=== PATIENT | male | born 1935 | race Caucasian/White ===

== ENCOUNTER 2022-05-06 09:35 | Observation (INO) ==
[2022-05-06] MEDS ORDERED: NS 500 ML IV 500 ML IV ONE (09:38)
--- NOTE | 2022-05-06 09:44 | DR.AMS ---
HPI Time Seen Time Seen by Provider: 05/06/22 09:36 Complaint Cheif Complaint Doctors Comments: 86 y/o male brought in for evaluation. Awoke with confusion this am. Reportedly fine going to bed last pm. Pt and spouse are poor historians. Pt has been having diarrhea recently, no other reports of recen t illness. Currently admits to having a headache. No report of recent trauma, fever, chills. RN notes pt was coughing. No report of vomiting, abdominal or chest pain. COVID-19 Coronavirus risk:travel/contact w/high risk person: No Has patient experienced Coronavirus symptoms: No Reviewed Nurses Notes Reviewed: Yes Source History Provided: Patient and Significant Other PMH PMH Past Medical History: COPD, Diabetes and Hypertension Past Surgical History: Yes Surgical History: Tonsillectomy Family History Family Medical History: Coronary Artery Disease Social History Do you use any recreational Drugs:: No Travel Risk Coronavirus risk:travel/contact w/high risk person: No Has patient experienced Coronavirus symptoms: No ROS Review of Systems Constitutional: Weakness Eyes: No Symptoms Reported ENTM: No Symptoms Reported Respiratoy: Non-Productive Cough Cardiovascular: No Symptoms Reported Gastrointestinal/Abdominal: Diarrhea Genitourinary: No Symptoms Reported Neurological: Headache and Weakness Musculoskeletal: No Symptoms Reported Integumentary: No Symptoms Reported Hematologic/Lymphatic: No Symptoms Reported Psychiatric: No Symptoms Reported All Other Systems: Reviewed and Negative PE Vitals Vital Signs: Temp Pulse Resp BP BP Pulse Ox O2 Del Method 05/29/15 22:35 168/79 05/06/22 12:16 96 H 37 H 94 L 05/06/22 12:16 216/132 05/06/22 12:15 120 H 38 H 96 05/06/22 12:00 91 H 23 95 05/06/22 12:00 209/100 05/06/22 11:57 86 34 H 95 05/06/22 11:57 211/101 05/06/22 11:16 83 29 H 96 05/06/22 11:16 210/97 05/06/22 11:15 92 H 33 H 95 05/06/22 11:00 71 19 98 05/06/22 11:00 190/81 05/06/22 10:46 203/91 05/06/22 10:46 71 14 97 05/06/22 10:45 71 22 97 05/06/22 10:33 203/93 05/06/22 10:33 67 28 H 95 05/06/22 10:30 82 33 H 92 L 05/06/22 10:15 66 24 97 05/06/22 10:05 70 29 H 96 05/06/22 09:45 69 30 H 97 05/06/22 09:45 208/72 05/06/22 09:36 72 29 H 96 05/06/22 09:35 99.1 F 65 22 228/100 97 Room Air General General Appearance: Alert and In No Apparent Distress Head Head Exam: Normal Inspection Eyes Eye exam: PERRL and EOMI ENT ENT Exam: Mucous Membranes Moist Neck Neck Exam: Normal Inspection and Full ROM; negative Tenderness Chest Chest Inspection: Normal Inspection; negative Tenderness Respiratory Respiratory Exam: Normal Lung Sounds Bilat; negative Accessory Muscle Use or Respiratory Distress Cardiovascular Cardiovascular Exam: Regular Rate, Normal Rhythm and Normal Heart Sounds Abdominal Exam Abdominal Exam: Normal Inspection and Soft; negative Tenderness Extremities Extremities Exam: negative Tenderness or Edema Neurological Neurological Exam: CN II-XII Intact and Other (awake, has difficulty following commands. Not oriented to time ) Speech: Fluid Speech Cranial Nerve Exam: EOM Function (II, III, IV, ): Normal, Facial Sensation (V): Normal, Facial Palsy (VII): Normal and Tongue Deviation: Normal Motor Strength - LUE: 4/5 Motor Strength - RUE: 4/5 Motor Strength - LLE: 3/5 Motor Strength - RLE: 4/5 Sensory Exam Upper Extremity: Light Touch: Normal Psychological Psychiatric Exam: Flat Affect Skin Skin Exam: Warm and Dry MDM Differential Diagnosis Metabolic: Dehydration Structural: CVA and SAH Infectious: Sepsis and UTI COURSE Treatment Treatment: 86 y/o male awoke with confusion. W/u initiated. Stroke protocol initiated, with teleneurology. Pt off the tpA clock (awoke with symptoms).1240 - Pt remains stable. No obvious cause for pt's altered mental status. Discussed with his attending, Dr Randhawa, will admit. Will order MRI of the brain to look for changes c/w CVA, vs underlying structural abnormalities. ROR Labs Reviewed Laboratory Results Reviewed?: Yes Result Diagrams: 05/06/22 09:52 05/06/22 09:52 Laboratory: WBC 9.1 X10^3/uL (3.6-10.0) 05/06/22 09:52 RBC 4.98 X10^6/uL (4.7-6.0) 05/06/22 09:52 Hgb 15.0 g/dL (13.5-18.0) 05/06/22 09:52 Hct 44.1 % (42.0-54.0) 05/06/22 09:52 MCV 88.5 fL (80.0-100.0) 05/06/22 09:52 MCH 30.1 pg (27.0-34.0) 05/06/22 09:52 MCHC 34.1 g/dL (33.0-35.0) 05/06/22 09:52 RDW 16.6 % (11.6-16.5) H 05/06/22 09:52 Plt Count 148 X10^3/uL (150.0-450.0) L 05/06/22 09:52 MPV 7.5 fL (7.4-11.0) 05/06/22 09:52 Neut % (Auto) 57.7 % (42.0-75.0) 05/06/22 09:52 Lymph % (Auto) 34.1 % (21.0-51.0) 05/06/22 09:52 [place] % (Auto) 6.0 % (0.0-13.0) 05/06/22 09:52 Eos % (Auto) 1.3 % (0.9-2.9) 05/06/22 09:52 Baso % (Auto) 0.9 % (0.2-1.0) 05/06/22 09:52 Neut # (Auto) 5.3 x10^3/uL (2.2-4.8) H 05/06/22 09:52 Lymph # (Auto) 3.1 X10^3/uL (1.3-2.9) H 05/06/22 09:52 [place] # (Auto) 0.5 x10^3/uL (0.3-0.8) 05/06/22 09:52 Eos # (Auto) 0.1 x10^3/uL (0.0-0.2) 05/06/22 09:52 Baso # (Auto) 0.1 X10^3/uL (0.0-0.1) 05/06/22 09:52 Absolute Nucleated RBC 0.2 /100WBC 05/06/22 09:52 PT 13.4 SECONDS (11.8-14.3) 05/06/22 09:52 INR Target Range - 05/06/22 09:52 INR 1.05 (0.8-1.3) 05/06/22 09:52 APTT 27.1 SECONDS (22.9-36.5) 05/06/22 09:52 PTT Comment - 05/06/22 09:52 Fibrinogen 365 mg/dL (239-489) 05/06/22 09:52 Sodium 138 mmol/L (136-145) 05/06/22 09:52 Corrected Sodium 139 mmol/L (136-145) 05/06/22 09:52 Potassium 4.5 mmol/L (3.5-5.1) 05/06/22 09:52 Chloride 102 mmol/L (98-107) 05/06/22 09:52 Carbon Dioxide 34.3 mmol/L (21-32) H 05/06/22 09:52 BUN 17 mg/dL (7-18) 05/06/22 09:52 Creatinine 1.33 mg/dL (0.70-1.30) H 05/06/22 09:52 Est GFR (MDRD) Af Amer > 60 (>60) 05/06/22 09:52 Est GFR (MDRD) Non-Af 54 (>60) L 05/06/22 09:52 Glucose 124 mg/dL (65-99) H 05/06/22 09:52 POC Glucose (mg/dL) 115 mg/dL (65-99) H 05/06/22 09:52 Calcium 8.7 mg/dL (8.5-10.1) 05/06/22 09:52 Corrected Calcium TNP 05/06/22 09:52 Total Bilirubin 0.70 mg/dL (0.2-1.0) 05/06/22 09:52 AST 21 Units/L (15-37) 05/06/22 09:52 ALT 26 Units/L (12-78) 05/06/22 09:52 Alkaline Phosphatase 48 Units/L (46-116) 05/06/22 09:52 Creatine Kinase 59 Units/L (39-308) 05/06/22 09:52 Troponin I High Sens 31.3 ng/L (4.0-60.0) 05/06/22 09:52 Total Protein 7.1 g/dL (6.4-8.2) 05/06/22 09:52 Albumin 3.9 g/dL (3.4-5.0) 05/06/22 09:52 Globulin 3.2 g/dL (2.5-4.5) 05/06/22 09:52 Albumin/Globulin Ratio 1.2 Ratio (1.1-2.1) 05/06/22 09:52 Specimen Type Clean catch urine 05/06/22 11:14 Urine Color Pale yellow (YELLOW) 05/06/22 11:14 Urine Appearance Clear (CLEAR) 05/06/22 11:14 Urine pH 8.0 (5.0 - 8.0) 05/06/22 11:14 Ur Specific [place] 1.015 (1.000-1.030) 05/06/22 11:14 Urine Protein Negative (NEGATIVE) 05/06/22 11:14 Urine Glucose (UA) 3+ (NEGATIVE) 05/06/22 11:14 Urine Ketones Negative (NEGATIVE) 05/06/22 11:14 Urine Blood Negative (NEGATIVE) 05/06/22 11:14 Urine Nitrite Negative (NEGATIVE) 05/06/22 11:14 Urine Bilirubin Negative (NEGATIVE) 05/06/22 11:14 Urine Urobilinogen Normal (NORMAL) 05/06/22 11:14 Ur Leukocyte Esterase Negative (NEGATIVE) 05/06/22 11:14 Urine Opiates Screen Negative (NEG=<300) 05/06/22 11:14 Urine Methadone Screen Negative (NEG=<300) 05/06/22 11:14 Ur Barbiturates Screen Negative (NEG=<200) 05/06/22 11:14 Ur Phencyclidine Scrn Negative (NEG=<25) 05/06/22 11:14 Ur Amphetamines Screen Negative (NEG=<1000) 05/06/22 11:14 U Benzodiazepines Scrn Negative (NEG=<200) 05/06/22 11:14 Urine Cocaine Screen Negative (NEG=<300) 05/06/22 11:14 U Marijuana (THC) Screen Negative (NEG=<50) 05/06/22 11:14 SARS-CoV-2 (PCR) Negative (NEGATIVE) 05/06/22 11:51 Labs overall acceptable. EKG Rate: 66 [place]: Normal Rhythm: NSR Block: None ST: Normal Opioid Opioid Risk Tool Age (Ghulam box if 16-45): No History of Preadolescent Sexual Abuse: No Total: 0 Total Score Risk Category: Low Risk Copyright: Josue TREJO predicting aberrant behaviors Discharge Plan Diagnosis Discharge Problem: Altered mental status Discharge Plan Patient Disposition: ADMITTED INPATIENT Condition: Stable Orders to Discharge Patient Discharge Orders: Discharge (Routine); Ordered 05/06/22 Ordered By: Parrish Ortiz Transfer (Routine); Ordered 05/06/22 Ordered By: Parrish Ortiz
[2022-05-06] MEDS ORDERED: NS 1,000 ML IV 1,000 ML ONE (09:46)
[2022-05-06 10:03] LABS: BASOPHILS # (AUTO) 0.1 X10^3/uL (0.0-0.1); BASOPHILS % (AUTO) 0.9 % (0.2-1.0); EOSINOPHILS # (AUTO) 0.1 x10^3/uL (0.0-0.2); EOSINOPHILS % (AUTO) 1.3 % (0.9-2.9); HEMATOCRIT 44.1 % (42.0-54.0); LYMPHOCYTES # (AUTO) 3.1 X10^3/uL (1.3-2.9); LYMPHOCYTES % (AUTO) 34.1 % (21.0-51.0); MEAN CORPUSCULAR HEMOGLOBIN 30.1 pg (27.0-34.0); MEAN CORPUSCULAR HGB CONC 34.1 g/dL (33.0-35.0); MEAN CORPUSCULAR VOLUME 88.5 fL (80.0-100.0); MEAN PLATELET VOLUME 7.5 fL (7.4-11.0); MONOCYTES # (AUTO) 0.5 x10^3/uL (0.3-0.8); NEUTROPHILS # (AUTO) 5.3 x10^3/uL (2.2-4.8); NEUTROPHILS % (AUTO) 57.7 % (42.0-75.0); RED BLOOD COUNT 4.98 X10^6/uL (4.7-6.0); RED CELL DISTRIBUTION WIDTH 16.6 % (11.6-16.5); WHITE BLOOD COUNT 9.1 X10^3/uL (3.6-10.0)
[2022-05-06 10:16] LABS: ALANINE AMINOTRANSFERASE 26 Units/L (12-78); ALBUMIN 3.9 g/dL (3.4-5.0); ALKALINE PHOSPHATASE 48 Units/L (46-116); ASPARTATE AMINO TRANSFERASE 21 Units/L (15-37); BLOOD UREA NITROGEN 17 mg/dL (7-18); CALCIUM 8.7 mg/dL (8.5-10.1); CARBON DIOXIDE 34.3 mmol/L (21-32); CHLORIDE 102 mmol/L (98-107); COR NA(FOR HYPERGLY) 139 mmol/L (136-145); CREATINE KINASE 59 Units/L (39-308); CREATININE 1.33 mg/dL (0.70-1.30); SODIUM 138 mmol/L (136-145); TOTAL PROTEIN 7.1 g/dL (6.4-8.2); eGFR NON BLACK RACES 54 (>60)
--- NOTE | 2022-05-06 10:16 | CT ---
HISTORYConfusionSTUDYCT head without contrastTechnique: Axial noncontrast images with coronal and sagittal reformats. Dose reduction procedures were used with mA/kv adjusted for body size.COMPARISONNoneFINDINGSThe ventricles are normal in size shape and position. There is generalized cortical atrophy likely age related. There is decreased attenuation in the periventricular white matter suggestive of small vessel vascular disease. There are no focal areas of abnormal attenuation to suggest recent or remote CVA, hemorrhage, mass lesion, contusion, or extra-axial fluid collection. The visualized sinuses are clear. The calvarium is intact. If acute CVA is a strong clinical consideration MRI with diffusion imaging would be of further diagnostic value.IMPRESSIONNo acute intracranial abnormality identifiedGeneralized cortical atrophy likely age relatedMild small vessel diseaseElectronically signed by: SERGEY VELASQUEZ (May 06, 2022 10:14:31)
[2022-05-06] MEDS: NS 1,000 ML IV 1,000 ML IV SCH ×2 (10:25→17:08)
--- NOTE | 2022-05-06 11:38 | RAD ---
HISTORYConfusion dizzySTUDYAP chestCOMPARISONNoneFINDINGSBorderline cardiomegaly with prosthesis/TAVR. Mild fibrotic changes are suggested in the lungs without definite pneumonia, pulmonary edema or pleural fluid.IMPRESSIONPostsurgical changes; no acute findings.Electronically signed by: RONY WITT (May 06, 2022 11:36:52)
[2022-05-06 11:43] LABS: BILIRUBIN,URINE NEGATIVE (NEGATIVE); BLOOD/HEMOGLOBIN,URINE NEGATIVE (NEGATIVE); GLUCOSE, URINE 3+ (NEGATIVE); KETONES,URINE NEGATIVE (NEGATIVE); LEUKOCYTE ESTERASE ,URINE NEGATIVE (NEGATIVE); NITRITES,URINE NEGATIVE (NEGATIVE); PROTEIN,URINE NEGATIVE (NEGATIVE); UROBILINOGEN,URINE NORMAL (NORMAL)
[2022-05-06 11:58] LABS: APPEARANCE,URINE CLEAR (CLEAR); COLOR,URINE PALE YELLOW (YELLOW)
--- NOTE | 2022-05-06 13:04 | CT ---
HISTORYALTERED MENTAL STATUS, CONFUSIONSTUDYCAROTID CTA with IV contrastCOMPARISONNoneTECHNIQUECTA of the carotid and vertebral arteries in the neck was performed with 3D MIP reconstructions.IV contrast was administered. Images are evaluated using NASCET criteria.FINDINGSCalcified plaque is seen in the origin of the right vertebral artery possibly causing up to 50 percent stenosis. Partially calcified plaque in the origin of the left vertebral artery probably causes approximately 70 percent stenosis. No vertebral artery dissection is seen.Calcified plaque in the right carotid bifurcation and proximal right ICA causes mild stenosis. Greatest degree of narrowing is in the origin of the right ICA with there is 25 percent stenosis. Trace calcified plaque is seen in the origin of the left CCA. Calcified plaque in the left carotid bifurcation and proximal left ICA only causes 15 percent stenosis.IMPRESSIONLikely hemodynamically significant stenosis in the origin of the left vertebral artery with up to 50 percent stenosis in the origin of the right vertebral artery.Only mild stenoses are seen in the regions of the carotid bifurcations and proximal ICAs.Electronically signed by: Russell Melendez (May 06, 2022 13:02:39)
--- NOTE | 2022-05-06 13:13 | CT ---
HISTORYALTERED MENTAL STATUS, CONFUSION, diabetesSTUDYBRAIN CTA with IV contrastCOMPARISONHead CT from same dayTECHNIQUECTA of the intracranial circulation was performed with 3D MIP reconstructions.IV contrast was administered.FINDINGSTrace calcified plaque is seen in the distal intradural portion of the right vertebral artery causing no significant stenosis. No basilar artery stenosis is seen. There is absent left P1 segment with left [employer] supplied via left posterior communicating artery. Normal right P1 segment is seen with absent right posterior communicating artery.There is mild calcified plaque in the cavernous and supraclinoid ICAs causing less than 20 percent stenosis. Anterior communicating artery is seen. No evidence of aneurysm is seen. Normal enhancement is seen of the dural venous sinuses.IMPRESSIONNo significant stenosis is seen.Electronically signed by: Russell Melendez (May 06, 2022 13:11:34)
--- NOTE | 2022-05-06 14:19 | TELESTROKE ---
[facility]ist Consult Date of Consult Date of Exam: 05/06/22 Time of Arrival to the ED: 09:42 Allergies Allergies Allergy/AdvReac Type Severity Reaction Status Date / Time MS Penicillin G Allergy Verified 05/29/15 21:08 [Penicillin G] SULFA DRUGS Allergy Uncoded 05/29/15 21:08 Vital Signs Vital Signs: Temp Pulse Resp BP BP Pulse Ox O2 Del Method 05/29/15 22:35 168/79 05/06/22 14:05 90 21 05/06/22 14:05 189/87 05/06/22 14:00 101 H 31 H 05/06/22 13:45 86 51 H 05/06/22 13:45 180/85 05/06/22 13:30 85 18 05/06/22 13:30 184/79 05/06/22 13:15 86 18 05/06/22 13:15 193/91 05/06/22 13:00 85 42 H 05/06/22 13:00 188/94 05/06/22 12:45 89 32 H 96 05/06/22 12:45 189/84 05/06/22 12:30 86 42 H 95 05/06/22 12:30 182/86 05/06/22 12:16 96 H 37 H 94 L 05/06/22 12:16 216/132 05/06/22 12:15 120 H 38 H 96 05/06/22 12:00 91 H 23 95 05/06/22 12:00 209/100 05/06/22 11:57 86 34 H 95 05/06/22 11:57 211/101 05/06/22 11:16 83 29 H 96 05/06/22 11:16 210/97 05/06/22 11:15 92 H 33 H 95 05/06/22 11:00 71 19 98 05/06/22 11:00 190/81 05/06/22 10:46 203/91 05/06/22 10:46 71 14 97 05/06/22 10:45 71 22 97 05/06/22 10:33 203/93 05/06/22 10:33 67 28 H 95 05/06/22 10:30 82 33 H 92 L 05/06/22 10:15 66 24 97 05/06/22 10:05 70 29 H 96 05/06/22 09:45 69 30 H 97 07/14/22 09:45 208/72 05/06/22 09:36 72 29 H 96 05/06/22 09:35 99.1 F 65 22 228/100 97 Room Air Medical Decision Making Result Diagrams: 05/06/22 09:52 05/06/22 09:52 Labs: Laboratory Results - last 24 hr 05/06/22 05/06/22 05/06/22 09:52 09:52 09:52 WBC 9.1 RBC 4.98 Hgb 15.0 Hct 44.1 MCV 88.5 MCH 30.1 MCHC 34.1 RDW 16.6 H Plt Count 148 L MPV 7.5 Neut % (Auto) 57.7 Lymph % (Auto) 34.1 [place] % (Auto) 6.0 Eos % (Auto) 1.3 Baso % (Auto) 0.9 Neut # (Auto) 5.3 H Lymph # (Auto) 3.1 H [place] # (Auto) 0.5 Eos # (Auto) 0.1 Baso # (Auto) 0.1 Absolute Nucleated RBC 0.2 PT 13.4 INR Target Range - INR 1.05 APTT 27.1 PTT Comment - Fibrinogen 365 Sodium 138 Corrected Sodium 139 Potassium 4.5 Chloride 102 Carbon Dioxide 34.3 H BUN 17 Creatinine 1.33 H Est GFR (MDRD) Af Amer > 60 Est GFR (MDRD) Non-Af 54 L Glucose 124 H POC Glucose (mg/dL) Calcium 8.7 Corrected Calcium TNP Total Bilirubin 0.70 AST 21 ALT 26 Alkaline Phosphatase 48 Creatine Kinase 59 Troponin I High Sens 31.3 Total Protein 7.1 Albumin 3.9 Globulin 3.2 Albumin/Globulin Ratio 1.2 Specimen Type Urine Color Urine Appearance Urine pH Ur Specific [place] Urine Protein Urine Glucose (UA) Urine Ketones Urine Blood Urine Nitrite Urine Bilirubin Urine Urobilinogen Ur Leukocyte Esterase Urine Opiates Screen Urine Methadone Screen Ur Barbiturates Screen Ur Phencyclidine Scrn Ur Amphetamines Screen U Benzodiazepines Scrn Urine Cocaine Screen U Marijuana (THC) Screen SARS-CoV-2 (PCR) 05/06/22 05/06/22 05/06/22 09:52 11:14 11:51 WBC RBC Hgb Hct MCV MCH MCHC RDW Plt Count MPV Neut % (Auto) Lymph % (Auto) [place] % (Auto) Eos % (Auto) Baso % (Auto) Neut # (Auto) Lymph # (Auto) [place] # (Auto) Eos # (Auto) Baso # (Auto) Absolute Nucleated RBC PT INR Target Range INR APTT PTT Comment Fibrinogen Sodium Corrected Sodium Potassium Chloride Carbon Dioxide BUN Creatinine Est GFR (MDRD) Af Amer Est GFR (MDRD) Non-Af Glucose POC Glucose (mg/dL) 115 H Calcium Corrected Calcium Total Bilirubin AST ALT Alkaline Phosphatase Creatine Kinase Troponin I High Sens Total Protein Albumin Globulin Albumin/Globulin Ratio Specimen Type Clean catch urine Urine Color Pale yellow Urine Appearance Clear Urine pH 8.0 Ur Specific [place] 1.015 Urine Protein Negative Urine Glucose (UA) 3+ Urine Ketones Negative Urine Blood Negative Urine Nitrite Negative Urine Bilirubin Negative Urine Urobilinogen Normal Ur Leukocyte Esterase Negative Urine Opiates Screen Negative Urine Methadone Screen Negative Ur Barbiturates Screen Negative Ur Phencyclidine Scrn Negative Ur Amphetamines Screen Negative U Benzodiazepines Scrn Negative Urine Cocaine Screen Negative U Marijuana (THC) Screen Negative SARS-CoV-2 (PCR) Negative Assessment & Plan Assessment & Plan (1) Stroke: Plan [facility] Tele[facility]urology Consult Services Date of Service: 05/06/2022 09:40:31 Diagnosis: I63.19 - 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 He has generalized weakness per . Not a candidate for thrombolytics given time from onset. Has confusion and difficulty following commands. Per chart, has baseline dementia, possibly dementia versus encephaloapthy 2/2 to metabolic.infectious causes versus stroke. Neurology following along. Metrics: Last Known Well: 05/05/2022 20:30:00 [facility] Notification Time: 05/06/2022 09:40:30 Arrival Time: 05/05/2022 09:42:00 Stamp Time: 05/06/2022 09:40:31 Initial Response Time: 05/06/2022 09:41:54 Symptoms: Confusion. NIHSS Start Assessment Time: 05/06/2022 09:44:40 Patient is not a candidate for Thrombolytic. Thrombolytic Medical Decision: 05/06/2022 09:44:57 Patient was not deemed candidate for Thrombolytic because of following reasons: Last Well Known Above 4.[address] head showed no acute hemorrhage or acute core infarct. ED Physician notified of diagnostic impression and management plan on 05/06/2022 10:20:00 Advanced Imaging: CTA Head and Neck Completed. LVO:No Patient doesn't meet criteria for emergent JORDYN consideration Our recommendations are outlined below. Recommendations: Stroke/Telemetry Floor Neuro Checks Bedside Swallow Eval DVT Prophylaxis IV Fluids, Normal Saline Head of Bed 30 Degrees Euglycemia and Avoid Hyperthermia (PRN Acetaminophen) Antihypertensives PRN if Blood pressure is greater than 220/120 or there is a concern for End organ damage/contraindications for permissive HTN. If blood pressure is greater than 220/120 give labetalol PO or IV or Vasotec IV with a goal of 15% reduction in BP during the first 24 hours. Routine Consultation with Inhouse Neurology for Follow up Care Sign Out: Discussed with Emergency Department Provider Discussed with Rapid Response Team History of Present Illness: Patient is a 86 year old Male. Patient was brought by EMS for symptoms of Confusion. 86 year old man brought in via EMS for confusion since this morning. He has generalized weakness per . Not a candidate for thrombolytics given time from onset. Has confusion and difficulty following commands.Per he has some blood thinner possibly but she does not know which one. Past Medical History: HTN, GERD Social History: Smoking: No Alcohol Use: No Drug Use: No Family History: none Review of System: 14 Points Review of Systems was performed and was negative except mentioned in HPI. Anticoagulant use: Unknown Antiplatelet use: Unknown Allergies: Reviewed Allergies Text: PCN, sulfa drugs Examination: BP(208/74), Pulse(72), Blood Glucose(114) 1A: Level of Consciousness - Alert; keenly responsive + 0 1B: Ask Month and Age - Could Not Answer Either Question Correctly + 2 1C: Blink Eyes & Squeeze Hands - Performs Both Tasks + 0 2: Test Horizontal Extraocular Movements - Normal + 0 3: Test Visual [place] - No Visual Loss + 0 4: Test Facial Palsy (Use Grimace if Obtunded) - Normal symmetry + 0 5A: Test Left Arm Motor Drift - No Drift for 10 Seconds + 0 5B: Test Right Arm Motor Drift - No Drift for 10 Seconds + 0 6A: Test Left Leg Motor Drift - No Drift for 5 Seconds + 0 6B: Test Right Leg Motor Drift - No Drift for 5 Seconds + 0 7: Test Limb Ataxia (FNF/Heel-Moya) - Does Not Understand + 0 8: Test Sensation - Normal; No sensory loss + 0 9: Test Language/Aphasia - Severe Aphasia: Fragmentary Expression, Inference Needed, Cannot Identify Materials + 2 10: Test Dysarthria - Normal + 0 11: Test Extinction/Inattention - No abnormality + 0 NIHSS Score: 4 Pre-Morbid Modified [place] Scale: 0 Points = No symptoms at all Patient/Family was informed the Neurology Consult would occur via TeleHealth consult by way of interactive audio and video telecommunications and consented to receiving care in this manner. Patient is being evaluated for possible acute neurologic impairment and high p robability of imminent or life-threatening deterioration. I spent total of 30 minutes providing care to this patient, including time for face to face visit via telemedicine, review of medical records, imaging studies and discussion of findings with providers, the patient and/or family. Dr Jak Mustafa [facility] Case [id number] Medications: Discontinued tramadol Discontinued Reason: Patient No Longer Taking 50 mg PO Q8H PRN 30 tabs 0RF Pain
--- NOTE | 2022-05-06 15:45 | MRI ---
BRAIN W/O CONCLINICAL INDICATION: AMSTECHNIQUE: Pre-contrast T1-w, T2, and diffusion-w sequences of the brain with ADC maps.COMPARISON:NoneFINDINGS:Diffuse patchy and confluent periventricular and subcortical T2/FLAIR signal with associated volume loss. There is no mass or mass-effect, or abnormal extra-axial fluid collection . Diffusion imaging shows no hyperacute, acute, or early subacute infarction . Age-related, ex-vacuo dilatation of the ventricles and sulci . There are normal signal voids in the larger intracranial vessels . The paranasal sinuses and mastoid air cells are predominantly clear . The marrow signal pattern is within normal limits .IMPRESSION:1.No acute intracranial abnormality.Electronically signed by: RADHA PÉREZ (May 06, 2022 15:43:32)
[2022-05-06] MEDS ORDERED: APRESOLINE INJ 20 MG VIAL IVP PRN (15:46)
[2022-05-06] MEDS ORDERED: PATIENT'S HOME MEDICATION (Insulin Aspart U-100 [Novolog Flexpen U-100 Insulin] 100 unit/m SUBCUT SCH (15:46)
[2022-05-06] MEDS: PROVENTIL NEB TX 0.083% 2.5MG/ 3ML IN SCH ×3 (16:07→21:05)
[2022-05-06 16:34] VITALS: BMI 32.1
[2022-05-06] MEDS: SINGULAIR TAB 10 MG PO SCH (16:53)
[2022-05-06] MEDS: ASPIRIN 81 MG CHEWTAB PO SCH (16:53)
[2022-05-06] MEDS: NEURONTIN CAP 100 MG PO SCH (16:53)
[2022-05-06] MEDS: PLAVIX PO SCH (16:53)
[2022-05-06] MEDS: PRAVACHOL PO SCH (21:08)
[2022-05-06] MEDS: LANTUS SC SCH (21:08)
[2022-05-06] MEDS: LASIX PO SCH (21:08)
[2022-05-07] MEDS: NS 1,000 ML IV 1,000 ML IV SCH ×4 (01:17→18:35)
[2022-05-07 05:41] LABS: BASOPHILS # (AUTO) 0.1 X10^3/uL (0.0-0.1); BASOPHILS % (AUTO) 0.6 % (0.2-1.0); EOSINOPHILS # (AUTO) 0.1 x10^3/uL (0.0-0.2); HEMATOCRIT 41.4 % (42.0-54.0); LYMPHOCYTES % (AUTO) 31.6 % (21.0-51.0); MEAN CORPUSCULAR HEMOGLOBIN 29.9 pg (27.0-34.0); MEAN CORPUSCULAR HGB CONC 33.8 g/dL (33.0-35.0); MEAN CORPUSCULAR VOLUME 88.5 fL (80.0-100.0); MEAN PLATELET VOLUME 7.7 fL (7.4-11.0); MONOCYTES # (AUTO) 0.8 x10^3/uL (0.3-0.8); MONOCYTES % (AUTO) 8.2 % (0.0-13.0); NEUTROPHILS # (AUTO) 5.6 x10^3/uL (2.2-4.8); NEUTROPHILS % (AUTO) 58.6 % (42.0-75.0); RED BLOOD COUNT 4.68 X10^6/uL (4.7-6.0); RED CELL DISTRIBUTION WIDTH 16.2 % (11.6-16.5); WHITE BLOOD COUNT 9.5 X10^3/uL (3.6-10.0)
[2022-05-07 05:46] LABS: ALANINE AMINOTRANSFERASE 22 Units/L (12-78); ALBUMIN 3.5 g/dL (3.4-5.0); ALKALINE PHOSPHATASE 43 Units/L (46-116); ASPARTATE AMINO TRANSFERASE 18 Units/L (15-37); BLOOD UREA NITROGEN 15 mg/dL (7-18); CHLORIDE 103 mmol/L (98-107); COR NA(FOR HYPERGLY) 140 mmol/L (136-145); CREATININE 1.27 mg/dL (0.70-1.30); SODIUM 139 mmol/L (136-145); TOTAL PROTEIN 6.2 g/dL (6.4-8.2); eGFR NON BLACK RACES 57 (>60)
[2022-05-07] MEDS: NEURONTIN CAP 100 MG PO SCH (09:15)
[2022-05-07] MEDS: PROVENTIL NEB TX 0.083% 2.5MG/ 3ML IN SCH ×4 (09:15→21:28)
[2022-05-07] MEDS: PLAVIX PO SCH (09:15)
[2022-05-07] MEDS: SINGULAIR TAB 10 MG PO SCH (09:15)
[2022-05-07] MEDS: FLOMAX PO SCH (09:15)
[2022-05-07] MEDS: LASIX PO SCH ×2 (09:15→20:16)
[2022-05-07] MEDS: ASPIRIN 81 MG CHEWTAB PO SCH (09:15)
[2022-05-07] MEDS: LANTUS SC SCH ×2 (11:35→20:21)
--- NOTE | 2022-05-07 11:53 | VAS ---
HISTORY: Concern for carotid artery stenosis. Carotid atherosclerosis.EXAM: BILATERAL DOPPLER CAROTID ULTRASOUND EXAMTechnique: Multiple camara scale and color flow Doppler images of the right and left carotid arterial system were obtained. The vertebral arterial system was evaluated as well.Findings:Nonocclusive color flow Doppler is seen throughout the right and left carotid arterial system. No hemodynamically significant carotid arterial stenosis is seen based on velocity criteria. There is moderate to severe atherosclerosis and hard atherosclerotic plaque formation of the bilateral carotid bulbs and ICAs with associated intimal thickening but [without] evidence for high-grade stenosis (>70%) or occlusion of the carotid arteries. The right and left vertebral artery demonstrate antegrade flow.IMPRESSION:Moderate to severe bilateral carotid atherosclerosis and hard atherosclerotic plaque formation of the bilateral carotid bulbs and [in both] ICAs with [id number] associated carotid intimal thickening but without evidence for high-grade stenosis or occlusion of the carotid arteries, based on Doppler velocity criteria.Appropriate, antegrade, vertebral arterial flow.Peak right ICA velocity: 92 centimeter/seconds.Peak right CCA velocity: [70] centimeter/seconds.Peak left ICA velocity: [95] centimeter/seconds.Peak left CCA velocity: [83] centimeter/seconds.Electronically signed by: JORGE LUIS ULLOA III (May 07, 2022 11:51:50)
[2022-05-07 13:17] LABS: HEMOGLOBIN A1C 5.8 %
--- NOTE | 2022-05-07 13:21 | DR.H&P ---
H&P - History & Physical for Day of: H&P Date: 05/06/22 - Chief Complaint Chief Complaint: AMS - History of Present Illness History of Present Illness: 86 y/o male brought in for evaluation. Awoke with confusion this am. Reportedly fine going to bed last pm. Pt and spouse are poor historians. Pt has been having diarrhea recently, no other reports of recent illness. Currently admits to having a headache. No report of recent trauma, fever, chills. RN notes pt was coughing. No report of vomiting, abdominal or chest pain. Pt has PMH of COPD, aortic valve replacement, CHF, HTN, DM. Pt had acute stroke work up in ER prior to ICU admission. - Past Medical History Past Medical History: Arthritis, COPD, Diabetes, GERD, Hypertension - Past Surgical History Surgical History: CABG/Valve Surgery (aortic valve replacement), Tonsillectomy - Family History Family Medical History: Diabetes Mellitus, [place] - Social History Does patient currently use any type of tobacco product: No Have you used tobacco products in the last 12 months: No Type of Tobacco Use: None Alcohol Use: None Drug Use: None Risks, benefits, and alternatives of opioids discussed: No Prescription drug monitoring program results: PDMP reviewed and no concerns identified - Medications Home Medications: MS Penicillin G [Penicillin G] Allergy (Verified 05/29/15 21:08) SULFA DRUGS Allergy (Uncoded 05/29/15 21:08) CONTINUE taking the following medications albuterol sulfate 2.5 mg/3 mL (0.083 %) solution for nebulization 3 ml inhalation QID 05/06/22 [History] aspirin 81 mg chewable tablet 81 mg PO QDAY 05/06/22 [History] azelastine 137 mcg (0.1 %) nasal spray aerosol 2 spray intranasal BID 05/06/22 [History] clopidogrel 75 mg tablet 1 tab PO QDAY 05/06/22 [History] furosemide 40 mg tablet 1 tab PO BID 05/06/22 [History] gabapentin 100 mg capsule 100 mg PO QDAY 05/06/22 [History] insulin aspart U-100 100 unit/mL (3 mL) subcutaneous pen (Novolog Flexpen U-100 Insulin aspart) 15 unit subcut TID 05/06/22 [History] montelukast 10 mg tablet 10 mg PO QDAY 05/06/22 [History] - Review of Systems Constitutional: Weakness, Malaise Eyes: No Symptoms Reported ENT: No Symptoms Reported Respiratory: Cough Cardiovascular: Edema Gastrointestinal: Diarrhea Genitourinary: No Symptoms Reported Musculoskeletal: Other (leg weakness "couldnt walk") Neurological: Weakness, Incoordination, Change in Speech ("garbled speech" per spouse), Confusion - Physical Exam Vital Signs: Temperature 98.0 F Pulse Rate 67 Respiratory Rate 27 Blood Pressure [Right Arm] 168/79 Blood Pressure 143/66 O2 Sat by Pulse Oximetry 97 Oriented: Person. negative: Time, Place Eyes: Normal Ear: Normal Nose: Normal Throat: Normal Respiratory: Rhonchi Throughout, RLL Diminished, LLL Diminished Cardiovascular: Normal, Edema (bilateral lower extremities +1) : Normal Auscultation: Bowel Sounds: Normal Palpation: Normal Tenderness: Normal Skin: Normal Musculoskeletal: Right, Left, Leg, Motor Deficit Mood Description: Calm Speech Pattern: Delayed - Assessment/Plan (1) Altered mental status Status: Acute Plan: ADMIT, ICU MONITORING. CONTINUE STROKE PROTOCOL, VERIFY HOME MEDICATION. PT/OT/SP EVALUATION, CONTINUOUSE CARDIAC MONITORING, SUPPLEMENTAL O2, NEURO CHECKS, RESUME PLAVIX AND STATIN. BP CONTROL, BC, URINE CULTURE AND SPUTUM CULTURE ON ADMISSION. IV ROCEPHIN (2) TIA (transient ischemic attack) Status: Acute (3) Diabetes Status: Acute (4) COPD (chronic obstructive pulmonary disease) Status: Acute - Allergies Allergies/Adverse Reactions: Allergies Allergy/AdvReac Type Severity Reaction Status Date / Time MS Penicillin G Allergy Verified 05/29/15 21:08 [Penicillin G] SULFA DRUGS Allergy Uncoded 05/29/15 21:08
--- NOTE | 2022-05-07 13:39 | PCM.PROG ---
Progress Note - Progress Note for Day of Date of Exam: 05/07/22 - Subjective Subjective: PT IS 86 WM ER ADMISSION WITH AMS, STROKE LIKE SYMPTOMS. PT HAD STROKE LIKE SYMPTOMS INCLUDING CONFUSION, SLURRED AND INAPPROPRIATE SPEECH, LOWER LEG WEAKNESS. PT HAD CT BRAIN, MRI BRAIN CTA OF NECK WHILE IN ER AND NEUROLOGIST TELEMED EVALUATION. PT HAS PMH OF HTN, DM, COPD, AORTIC VALVE DIS EASE, MO AND CHF. PT WAS ADMITTED TO ICU FOR EVALUATION OF ACUTE ILLNESS. PT HAD DIFFUSE RHONCHI WITH COUGH PRESENT ON EXAM THIS MORNING. PT REPORTS HE HAS BEEN HAVING DIARRHEA AT HOME AND CO HEADACHE, WHICH IS RARE FOR HIM. PT HAD CAROTID US WO SIGNIFICANT STENOSIS, REPEAT CHEST XRAY THIS MORNING IS PENDING.PT WAS IN HYPERTENSIVE URGENCY ON ARRIVAL TO ER, CURRENTLY CONTROLLED BP. PT DENIES CHEST PAIN THIS MORNING. PT/OT/SP TO EVALUATE THIS MORNING. PT IV FLUIDS DECREASED FROM 125CC/HR TO 50CC/HR. PT MOVING BILATERAL UPPER AND LOWER EXTREMITIES THIS MORNING WITHOUT MARKED DEFICIT. RESP CONSULTED FOR SPUTUM CULTURE AND PRN JUSTYNA GOINS, PT ON IV ROCEPHIN. - Past Medical Family Social History Allergies: Allergies MS Penicillin G [Penicillin G] Allergy (Verified 05/29/15 21:08) SULFA DRUGS Allergy (Uncoded 05/29/15 21:08) - Review of Systems ROS: No change since H&P - Vital Signs and I&O's Vital Signs: Temperature 98.0 F Pulse Rate 67 Respiratory Rate 27 Blood Pressure [Right Arm] 168/79 Blood Pressure 143/66 O2 Sat by Pulse Oximetry 97 Intake and Output: Intake & Output 05/05/22 05/06/22 05/07/22 05/08/22 11:59 11:59 11:59 11:59 Intake Total 2491 / 2491 Balance 2491 / 2491 - Physical Exam Oriented: Person. negative: Time, Place Eyes: Normal Ear: Normal Nose: Normal Throat: Normal Respiratory: Diminished, Rhonchi Cardiovascular: Normal, Edema (bilateral lower extremities +1) : Normal Auscultation: Bowel Sounds: Normal Tenderness: Normal Skin: Normal Musculoskeletal: Back:Lumbar, Tender Psychiatric: Normal Mood Description: Calm Speech Pattern: Clear, Appropriate - Laboratory and Diagnostics Result Diagrams: 05/07/22 05:20 05/07/22 05:20 Labs: Laboratory WBC 9.5 X10^3/uL (3.6-10.0) 05/07/22 05:20 RBC 4.68 X10^6/uL (4.7-6.0) L 05/07/22 05:20 Hgb 14.0 g/dL (13.5-18.0) 05/07/22 05:20 Hct 41.4 % (42.0-54.0) L 05/07/22 05:20 MCV 88.5 fL (80.0-100.0) 05/07/22 05:20 MCH 29.9 pg (27.0-34.0) 05/07/22 05:20 MCHC 33.8 g/dL (33.0-35.0) 05/07/22 05:20 RDW 16.2 % (11.6-16.5) 05/07/22 05:20 Plt Count 138 X10^3/uL (150.0-450.0) L 05/07/22 05:20 MPV 7.7 fL (7.4-11.0) 05/07/22 05:20 Neut % (Auto) 58.6 % (42.0-75.0) 05/07/22 05:20 Lymph % (Auto) 31.6 % (21.0-51.0) 05/07/22 05:20 [place] % (Auto) 8.2 % (0.0-13.0) 05/07/22 05:20 Eos % (Auto) 1.0 % (0.9-2.9) 05/07/22 05:20 Baso % (Auto) 0.6 % (0.2-1.0) 05/07/22 05:20 Neut # (Auto) 5.6 x10^3/uL (2.2-4.8) H 05/07/22 05:20 Lymph # (Auto) 3.0 X10^3/uL (1.3-2.9) H 05/07/22 05:20 Wise # (Auto) 0.8 x10^3/uL (0.3-0.8) 05/07/22 05:20 Eos # (Auto) 0.1 x10^3/uL (0.0-0.2) 05/07/22 05:20 Baso # (Auto) 0.1 X10^3/uL (0.0-0.1) 05/07/22 05:20 Absolute Nucleated RBC 0.2 /100WBC 05/07/22 05:20 PT 13.4 SECONDS (11.8-14.3) 05/06/22 09:52 INR Target Range - 05/06/22 09:52 INR 1.05 (0.8-1.3) 05/06/22 09:52 APTT 27.1 SECONDS (22.9-36.5) 05/06/22 09:52 PTT Comment - 05/06/22 09:52 Fibrinogen 365 mg/dL (239-489) 05/06/22 09:52 Sodium 139 mmol/L (136-145) 05/07/22 05:20 Corrected Sodium 140 mmol/L (136-145) 05/07/22 05:20 Potassium 4.2 mmol/L (3.5-5.1) 05/07/22 05:20 Chloride 103 mmol/L (98-107) 05/07/22 05:20 Carbon Dioxide 30.0 mmol/L (21-32) 05/07/22 05:20 BUN 15 mg/dL (7-18) 05/07/22 05:20 Creatinine 1.27 mg/dL (0.70-1.30) 05/07/22 05:20 Est GFR (MDRD) Af Amer > 60 (>60) 05/07/22 05:20 Est GFR (MDRD) Non-Af 57 (>60) L 05/07/22 05:20 Glucose 121 mg/dL (65-99) H 05/07/22 05:20 POC Glucose (mg/dL) 165 mg/dL (65-99) H 05/07/22 12:05 Calcium 8.0 mg/dL (8.5-10.1) L 05/07/22 05:20 Corrected Calcium TNP 05/07/22 05:20 Total Bilirubin 0.90 mg/dL (0.2-1.0) 05/07/22 05:20 AST 18 Units/L (15-37) 05/07/22 05:20 ALT 22 Units/L (12-78) 05/07/22 05:20 Alkaline Phosphatase 43 Units/L (46-116) L 05/07/22 05:20 Creatine Kinase 59 Units/L (39-308) 05/06/22 09:52 Troponin I High Sens 31.3 ng/L (4.0-60.0) 05/06/22 09:52 Total Protein 6.2 g/dL (6.4-8.2) L 05/07/22 05:20 Albumin 3.5 g/dL (3.4-5.0) 05/07/22 05:20 Globulin 2.7 g/dL (2.5-4.5) 05/07/22 05:20 Albumin/Globulin Ratio 1.3 Ratio (1.1-2.1) 05/07/22 05:20 Specimen Type Clean catch urine 05/06/22 11:14 Urine Color Pale yellow (YELLOW) 05/06/22 11:14 Urine Appearance Clear (CLEAR) 05/06/22 11:14 Urine pH 8.0 (5.0 - 8.0) 05/06/22 11:14 Ur Specific [place] 1.015 (1.000-1.030) 05/06/22 11:14 Urine Protein Negative (NEGATIVE) 05/06/22 11:14 Urine Glucose (UA) 3+ (NEGATIVE) 05/06/22 11:14 Urine Ketones Negative (NEGATIVE) 05/06/22 11:14 Urine Blood Negative (NEGATIVE) 05/06/22 11:14 Urine Nitrite Negative (NEGATIVE) 05/06/22 11:14 Urine Bilirubin Negative (NEGATIVE) 05/06/22 11:14 Urine Urobilinogen Normal (NORMAL) 05/06/22 11:14 Ur Leukocyte Esterase Negative (NEGATIVE) 05/06/22 11:14 Urine Opiates Screen Negative (NEG=<300) 05/06/22 11:14 Urine Methadone Screen Negative (NEG=<300) 05/06/22 11:14 Ur Barbiturates Screen Negative (NEG=<200) 05/06/22 11:14 Ur Phencyclidine Scrn Negative (NEG=<25) 05/06/22 11:14 Ur Amphetamines Screen Negative (NEG=<1000) 05/06/22 11:14 U Benzodiazepines Scrn Negative (NEG=<200) 05/06/22 11:14 Urine Cocaine Screen Negative (NEG=<300) 05/06/22 11:14 U Marijuana (THC) Screen Negative (NEG=<50) 05/06/22 11:14 SARS-CoV-2 (PCR) Negative (NEGATIVE) 05/06/22 11:51 - Plan (1) TIA (transient ischemic attack) Status: Acute Plan: ICU MONITORING. CONTINUE STROKE PROTOCOL, VERIFY HOME MEDICATION. PT/OT/SP EVALUATION, CONTINUOUSE CARDIAC MONITORING, SUPPLEMENTAL O2, NEURO CHECKS, RESUME PLAVIX AND STATIN. BP CONTROL, BC, URINE CULTURE AND SPUTUM CULTURE ON ADMISSION. IV ROCEPHIN (2) Hypertensive encephalopathy syndrome Status: Acute (3) COPD (chronic obstructive pulmonary disease) Status: Acute Qualifiers: COPD type: COPD with acute exacerbation Qualified Code(s): J44.1 - Chronic obstructive pulmonary disease with (acute) exacerbation (4) Diabetes Status: Acute (5) Altered mental status Status: Resolved
--- NOTE | 2022-05-07 14:54 | RAD ---
HISTORYSOB CHFSTUDYPortable AP [id number] cardiac prominence with aortic valve prosthesis. Interval increase in vascular congestion and interstitial pulmonary pattern. No airspace consolidation or pleural fluid.IMPRESSIONSlight interval increase in pulmonary congestion and interstitial prominence consistent with mild CHF.Electronically signed by: RONY WITT (May 07, 2022 14:52:29)
[2022-05-07] MEDS: ROBITUSSIN DM PO SCH ×3 (15:49→20:16)
[2022-05-07] MEDS: ROCEPHIN VIAL 1 GRAM 1 G in NS 100 ML IV 100 ML IV SCH (15:49)
[2022-05-07 20:16] LABS: BILIRUBIN,URINE NEGATIVE (NEGATIVE); BLOOD/HEMOGLOBIN,URINE NEGATIVE (NEGATIVE); GLUCOSE, URINE 4+ (NEGATIVE); KETONES,URINE NEGATIVE (NEGATIVE); LEUKOCYTE ESTERASE ,URINE NEGATIVE (NEGATIVE); NITRITES,URINE NEGATIVE (NEGATIVE); PROTEIN,URINE NEGATIVE (NEGATIVE); UROBILINOGEN,URINE NORMAL (NORMAL)
[2022-05-07 20:18] LABS: APPEARANCE,URINE CLEAR (CLEAR); COLOR,URINE STRAW (YELLOW)
[2022-05-07] MEDS: PRAVACHOL PO SCH (20:27)
[2022-05-08] MEDS: NS 1,000 ML IV 1,000 ML IV SCH ×3 (02:51→18:07)
[2022-05-08 05:43] LABS: BASOPHILS # (AUTO) 0.1 X10^3/uL (0.0-0.1); BASOPHILS % (AUTO) 0.7 % (0.2-1.0); EOSINOPHILS # (AUTO) 0.1 x10^3/uL (0.0-0.2); EOSINOPHILS % (AUTO) 1.5 % (0.9-2.9); HEMATOCRIT 39.6 % (42.0-54.0); HEMOGLOBIN 13.3 g/dL (13.5-18.0); LYMPHOCYTES # (AUTO) 2.1 X10^3/uL (1.3-2.9); LYMPHOCYTES % (AUTO) 27.2 % (21.0-51.0); MEAN CORPUSCULAR HEMOGLOBIN 29.8 pg (27.0-34.0); MEAN CORPUSCULAR HGB CONC 33.5 g/dL (33.0-35.0); MEAN CORPUSCULAR VOLUME 89.1 fL (80.0-100.0); MEAN PLATELET VOLUME 8.2 fL (7.4-11.0); MONOCYTES # (AUTO) 0.7 x10^3/uL (0.3-0.8); MONOCYTES % (AUTO) 9.1 % (0.0-13.0); NEUTROPHILS # (AUTO) 4.6 x10^3/uL (2.2-4.8); NEUTROPHILS % (AUTO) 61.5 % (42.0-75.0); RED BLOOD COUNT 4.45 X10^6/uL (4.7-6.0); RED CELL DISTRIBUTION WIDTH 16.4 % (11.6-16.5); WHITE BLOOD COUNT 7.5 X10^3/uL (3.6-10.0)
[2022-05-08 05:55] LABS: ALANINE AMINOTRANSFERASE 25 Units/L (12-78); ALBUMIN 3.4 g/dL (3.4-5.0); ALKALINE PHOSPHATASE 45 Units/L (46-116); ASPARTATE AMINO TRANSFERASE 14 Units/L (15-37); BLOOD UREA NITROGEN 13 mg/dL (7-18); CALCIUM 7.9 mg/dL (8.5-10.1); CARBON DIOXIDE 29.1 mmol/L (21-32); TOTAL PROTEIN 6.5 g/dL (6.4-8.2); eGFR NON BLACK RACES 51 (>60)
[2022-05-08 06:08] LABS: CHLORIDE 104 mmol/L (98-107)
[2022-05-08 06:38] LABS: COR NA(FOR HYPERGLY) 142 mmol/L (136-145); SODIUM 140 mmol/L (136-145)
[2022-05-08] MEDS: PROVENTIL NEB TX 0.083% 2.5MG/ 3ML IN SCH ×4 (08:22→20:22)
[2022-05-08] MEDS: ASPIRIN 81 MG CHEWTAB PO SCH (08:51)
[2022-05-08] MEDS: FLOMAX PO SCH (08:51)
[2022-05-08] MEDS: LANTUS SC SCH ×2 (08:51→21:30)
[2022-05-08] MEDS: LASIX PO SCH ×2 (08:52→21:30)
[2022-05-08] MEDS: PLAVIX PO SCH (08:52)
[2022-05-08] MEDS: NEURONTIN CAP 100 MG PO SCH (08:52)
[2022-05-08] MEDS: ROCEPHIN VIAL 1 GRAM 1 G in NS 100 ML IV 100 ML IV SCH (08:53)
[2022-05-08] MEDS: ROBITUSSIN DM PO SCH ×4 (08:53→21:30)
[2022-05-08] MEDS: SINGULAIR TAB 10 MG PO SCH (08:53)
[2022-05-08] MEDS ORDERED: LASIX IVP ONE (10:27)
[2022-05-08] MEDS: ZESTRIL TAB 5 MG PO SCH (11:05)
[2022-05-08] MEDS: NovoLIN R (or HumuLIN R) SC PRN ×2 (11:17→16:14)
[2022-05-08] MEDS: PRAVACHOL PO SCH (21:30)
[2022-05-09] MEDS: NS 1,000 ML IV 1,000 ML IV SCH ×4 (02:05→17:44)
[2022-05-09 05:43] LABS: ALANINE AMINOTRANSFERASE 16 Units/L (12-78); ALBUMIN 3.5 g/dL (3.4-5.0); ALKALINE PHOSPHATASE 42 Units/L (46-116); ASPARTATE AMINO TRANSFERASE 14 Units/L (15-37); BLOOD UREA NITROGEN 19 mg/dL (7-18); CALCIUM 8.1 mg/dL (8.5-10.1); CARBON DIOXIDE 32.6 mmol/L (21-32); CHLORIDE 101 mmol/L (98-107); COR NA(FOR HYPERGLY) 143 mmol/L (136-145); CREATININE 1.72 mg/dL (0.70-1.30); SODIUM 140 mmol/L (136-145); TOTAL PROTEIN 6.7 g/dL (6.4-8.2); eGFR NON BLACK RACES 40 (>60)
[2022-05-09 06:08] LABS: BASOPHILS % (AUTO) 0.5 % (0.2-1.0); EOSINOPHILS # (AUTO) 0.2 x10^3/uL (0.0-0.2); EOSINOPHILS % (AUTO) 1.9 % (0.9-2.9); HEMATOCRIT 40.5 % (42.0-54.0); HEMOGLOBIN 13.6 g/dL (13.5-18.0); LYMPHOCYTES # (AUTO) 2.1 X10^3/uL (1.3-2.9); LYMPHOCYTES % (AUTO) 24.5 % (21.0-51.0); MEAN CORPUSCULAR HEMOGLOBIN 29.9 pg (27.0-34.0); MEAN CORPUSCULAR HGB CONC 33.7 g/dL (33.0-35.0); MEAN CORPUSCULAR VOLUME 88.7 fL (80.0-100.0); MEAN PLATELET VOLUME 8.2 fL (7.4-11.0); MONOCYTES # (AUTO) 0.8 x10^3/uL (0.3-0.8); MONOCYTES % (AUTO) 9.5 % (0.0-13.0); NEUTROPHILS # (AUTO) 5.5 x10^3/uL (2.2-4.8); NEUTROPHILS % (AUTO) 63.6 % (42.0-75.0); RED BLOOD COUNT 4.57 X10^6/uL (4.7-6.0); RED CELL DISTRIBUTION WIDTH 16.3 % (11.6-16.5); WHITE BLOOD COUNT 8.7 X10^3/uL (3.6-10.0)
[2022-05-09] MEDS: PROVENTIL NEB TX 0.083% 2.5MG/ 3ML IN SCH ×3 (08:35→20:25)
[2022-05-09] MEDS: ASPIRIN 81 MG CHEWTAB PO SCH (08:40)
[2022-05-09] MEDS: FLOMAX PO SCH (08:41)
[2022-05-09] MEDS: NEURONTIN CAP 100 MG PO SCH (08:41)
[2022-05-09] MEDS: PLAVIX PO SCH (08:41)
[2022-05-09] MEDS: LASIX PO SCH (08:41)
[2022-05-09] MEDS: LANTUS SC SCH ×2 (08:41→20:29)
[2022-05-09] MEDS: ROCEPHIN VIAL 1 GRAM 1 G in NS 100 ML IV 100 ML IV SCH (08:42)
[2022-05-09] MEDS: ROBITUSSIN DM PO SCH ×4 (08:42→20:30)
[2022-05-09] MEDS: ZESTRIL TAB 5 MG PO SCH (08:43)
[2022-05-09] MEDS: SINGULAIR TAB 10 MG PO SCH (08:43)
[2022-05-09] MEDS: NovoLIN R (or HumuLIN R) SC PRN ×2 (12:06→16:19)
--- NOTE | 2022-05-09 14:49 | PCM.PROG ---
Progress Note - Progress Note for Day of Date of Exam: 05/09/22 - Subjective Subjective: PT IS 86 WM ER ADMISSION WITH AMS, STROKE LIKE SYMPTOMS. PT HAD STROKE LIKE SYMPTOMS INCLUDING CONFUSION, SLURRED AND INAPPROPRIATE SPEECH, LOWER LEG WEAKNESS. PT HAD CT BRAIN, MRI BRAIN CTA OF NECK WHILE IN ER AND NEUROLOGIST TELEMED EVALUATION. PT HAS PMH OF HTN, DM, COPD, AORTIC VALVE DIS EASE, MO AND CHF. PT WAS ADMITTED TO ICU FOR EVALUATION OF ACUTE ILLNESS. PT HAD DIFFUSE RHONCHI WITH COUGH PRESENT ON EXAM THIS MORNING. PT REPORTS HE HAS BEEN HAVING DIARRHEA AT HOME AND CO HEADACHE, WHICH IS RARE FOR HIM. PT HAD CAROTID US WO SIGNIFICANT STENOSIS. CHEST XRAY YESTERDAY HAD INCREASED VASCULAR CONGESTION, REPEAT CHEST XRAY THIS MORNING IS PENDING.PT WAS IN HYPERTENSIVE URGENCY ON ARRIVAL TO ER, CURRENTLY CONTROLLED BP. PT DENIES CHEST PAIN THIS MORNING. PT/OT/SP TO EVALUATE THIS MORNING. PT IV FLUIDS DECREASED FROM 50CC/HR. PT MOVING BILATERAL UPPER AND LOWER EXTREMITIES THIS MORNING WITHOUT MARKED DEFICIT. RESP CONSULTED FOR SPUTUM CULTURE AND PRN JEFFO BRISEIDA, PT ON IV ROCEPHIN. PT SCHEDULED FOR ECHO IN THE AM. PT REPORTS HE FEELING BETTER WITH IMPROVED LOWER LEG EDEMA AND IMPROVING SOB. PT HAS REPORTS NO LONGER HAVING LOOSE STOOL. WBC 8.7, HGB 13.6 BUN 19, CREAT 1.72. BP 139/65 O2 SAT 94 % ON ROOM AIR THIS MORNING - Past Medical Family Social History Allergies: Allergies penicillin G Allergy (Verified 05/08/22 02:45) SULFA DRUGS Allergy (Uncoded 05/29/15 21:08) - Review of Systems ROS: No change since H&P - Vital Signs and I&O's Vital Signs: Temperature 99 F Pulse Rate 73 Respiratory Rate 21 Blood Pressure [Right Arm] 168/79 Blood Pressure 123/58 O2 Sat by Pulse Oximetry 92 Intake and Output: Intake & Output 05/07/22 05/08/22 05/09/22 05/10/22 11:59 11:59 11:59 11:59 Intake Total 2491 / 2491 2918 / 2918 1217 / 1217 Output Total 2400 / 2400 Balance 2491 / 2491 2918 / 2918 -1183 / -1183 - Physical Exam Oriented: Person. negative: Time, Place Eyes: Normal Ear: Normal Nose: Normal Throat: Normal Respiratory: Diminished, Rhonchi Cardiovascular: Normal, Edema (bilateral lower extremities +1) : Normal Auscultation: Bowel Sounds: Normal Tenderness: Normal Skin: Normal Musculoskeletal: Back:Lumbar, Tender Psychiatric: Normal Mood Description: Calm Speech Pattern: Delayed - Laboratory and Diagnostics Result Diagrams: 05/09/22 04:30 05/09/22 04:30 Labs: 05/07/22 10:04 Blood Blood Culture - Preliminary 05/07/22 09:47 Blood Blood Culture - Preliminary 05/07/22 19:35 Urine,Clean Catch Urine Culture - Final 05/07/22 21:10 Stool Stool Culture - Preliminary 05/07/22 21:10 Stool - Final Laboratory WBC 8.7 X10^3/uL (3.6-10.0) 05/09/22 04:30 RBC 4.57 X10^6/uL (4.7-6.0) L 05/09/22 04:30 Hgb 13.6 g/dL (13.5-18.0) 05/09/22 04:30 Hct 40.5 % (42.0-54.0) L 05/09/22 04:30 MCV 88.7 fL (80.0-100.0) 05/09/22 04:30 MCH 29.9 pg (27.0-34.0) 05/09/22 04:30 MCHC 33.7 g/dL (33.0-35.0) 05/09/22 04:30 RDW 16.3 % (11.6-16.5) 05/09/22 04:30 Plt Count 132 X10^3/uL (150.0-450.0) L 05/09/22 04:30 MPV 8.2 fL (7.4-11.0) 05/09/22 04:30 Neut % (Auto) 63.6 % (42.0-75.0) 05/09/22 04:30 Lymph % (Auto) 24.5 % (21.0-51.0) 05/09/22 04:30 [place] % (Auto) 9.5 % (0.0-13.0) 05/09/22 04:30 Eos % (Auto) 1.9 % (0.9-2.9) 05/09/22 04:30 Baso % (Auto) 0.5 % (0.2-1.0) 05/09/22 04:30 Neut # (Auto) 5.5 x10^3/uL (2.2-4.8) H 05/09/22 04:30 Lymph # (Auto) 2.1 X10^3/uL (1.3-2.9) 05/09/22 04:30 [place] # (Auto) 0.8 x10^3/uL (0.3-0.8) 05/09/22 04:30 Eos # (Auto) 0.2 x10^3/uL (0.0-0.2) 05/09/22 04:30 Baso # (Auto) 0.0 X10^3/uL (0.0-0.1) 05/09/22 04:30 Absolute Nucleated RBC 0.4 /100WBC 05/09/22 04:30 PT 13.4 SECONDS (11.8-14.3) 05/06/22 09:52 INR Target Range - 05/06/22 09:52 INR 1.05 (0.8-1.3) 05/06/22 09:52 APTT 27.1 SECONDS (22.9-36.5) 05/06/22 09:52 PTT Comment - 05/06/22 09:52 Fibrinogen 365 mg/dL (239-489) 05/06/22 09:52 Sodium 140 mmol/L (136-145) 05/09/22 04:30 Corrected Sodium 143 mmol/L (136-145) 05/09/22 04:30 Potassium 3.5 mmol/L (3.5-5.1) 05/09/22 04:30 Chloride 101 mmol/L (98-107) 05/09/22 04:30 Carbon Dioxide 32.6 mmol/L (21-32) H 05/09/22 04:30 BUN 19 mg/dL (7-18) H 05/09/22 04:30 Creatinine 1.72 mg/dL (0.70-1.30) H 05/09/22 04:30 Est GFR (MDRD) Af Amer 49 (>60) L 05/09/22 04:30 Est GFR (MDRD) Non-Af 40 (>60) L 05/09/22 04:30 Glucose 205 mg/dL (65-99) H 05/09/22 04:30 POC Glucose (mg/dL) 245 mg/dL (65-99) H 05/09/22 11:55 Hemoglobin A1c 5.8 % 05/07/22 05:20 Calcium 8.1 mg/dL (8.5-10.1) L 05/09/22 04:30 Corrected Calcium TNP 05/09/22 04:30 Total Bilirubin 0.50 mg/dL (0.2-1.0) 05/09/22 04:30 AST 14 Units/L (15-37) L 05/09/22 04:30 ALT 16 Units/L (12-78) 05/09/22 04:30 Alkaline Phosphatase 42 Units/L (46-116) L 05/09/22 04:30 Creatine Kinase 63 Units/L (39-308) 05/07/22 18:10 Troponin I High Sens 37.6 ng/L (4.0-60.0) 05/07/22 18:10 Total Protein 6.7 g/dL (6.4-8.2) 05/09/22 04:30 Albumin 3.5 g/dL (3.4-5.0) 05/09/22 04:30 Globulin 3.2 g/dL (2.5-4.5) 05/09/22 04:30 Albumin/Globulin Ratio 1.1 Ratio (1.1-2.1) 05/09/22 04:30 Specimen Type Clean catch urine 05/07/22 19:35 Urine Color Straw (YELLOW) 05/07/22 19:35 Urine Appearance Clear (CLEAR) 05/07/22 19:35 Urine pH 5.0 (5.0 - 8.0) 05/07/22 19:35 Ur Specific [place] 1.010 (1.000-1.030) 05/07/22 19:35 Urine Protein Negative (NEGATIVE) 05/07/22 19:35 Urine Glucose (UA) 4+ (NEGATIVE) 05/07/22 19:35 Urine Ketones Negative (NEGATIVE) 05/07/22 19:35 Urine Blood Negative (NEGATIVE) 05/07/22 19:35 Urine Nitrite Negative (NEGATIVE) 05/07/22 19:35 Urine Bilirubin Negative (NEGATIVE) 05/07/22 19:35 Urine Urobilinogen Normal (NORMAL) 05/07/22 19:35 Ur Leukocyte Esterase Negative (NEGATIVE) 05/07/22 19:35 Stool Description 120 g. brown 05/07/22 21:10 Stl Occult Blood (IFOB) Positive (NEGATIVE) A 05/07/22 21:10 Stool for White Cells Positive (NEGATIVE) A 05/07/22 21:10 Stl C. diff Tox B Gene Negative (NEGATIVE) 05/07/22 21:10 Stl C. diff [id number] Presumptive negative (NEGATIVE) 05/07/22 21:10 Stool H. pylori Ag Negative (NEGATIVE) 05/07/22 21:10 Urine Opiates Screen Negative (NEG=<300) 05/06/22 11:14 Urine Methadone Screen Negative (NEG=<300) 05/06/22 11:14 Ur Barbiturates Screen Negative (NEG=<200) 05/06/22 11:14 Ur Phencyclidine Scrn Negative (NEG=<25) 05/06/22 11:14 Ur Amphetamines Screen Negative (NEG=<1000) 05/06/22 11:14 U Benzodiazepines Scrn Negative (NEG=<200) 05/06/22 11:14 Urine Cocaine Screen Negative (NEG=<300) 05/06/22 11:14 U Marijuana (THC) Screen Negative (NEG=<50) 05/06/22 11:14 SARS-CoV-2 (PCR) Negative (NEGATIVE) 05/06/22 11:51 - Plan (1) TIA (transient ischemic attack) Status: Acute Plan: ICU MONITORING. CONTINUE STROKE PROTOCOL, VERIFY HOME MEDICATION. PT/OT/ SP EVALUATION, CONTINUOUSE CARDIAC MONITORING, SUPPLEMENTAL O2, NEURO CHECKS, RESUME PLAVIX AND STATIN. BP CONTROL, BC, URINE CULTURE AND SPUTUM CULTURE ON ADMISSION. IV ROCEPHIN (2) Hypertensive encephalopathy syndrome Status: Acute (3) COPD (chronic obstructive pulmonary disease) Status: Acute Qualifiers: COPD type: COPD with acute exacerbation Qualified Code(s): J44.1 - Chronic obstructive pulmonary disease with (acute) exacerbation (4) Diabetes Status: Acute (5) Altered mental status Status: Resolved Plan: ADMIT, ICU MONITORING. CONTINUE STROKE PROTOCOL, VERIFY HOME MEDICATION. PT/OT/SP EVALUATION, CONTINUOUSE CARDIAC MONITORING, SUPPLEMENTAL O2, NEURO CHECKS, RESUME PLAVIX AND STATIN. BP CONTROL, BC, URINE CULTURE AND SPUTUM CULTURE ON ADMISSION. IV ROCEPHIN
[2022-05-09] MEDS: PRAVACHOL PO SCH (20:29)
[2022-05-10] MEDS: NS 1,000 ML IV 1,000 ML IV SCH ×2 (03:05→11:04)
[2022-05-10 05:20] LABS: BASOPHILS # (AUTO) 0.1 X10^3/uL (0.0-0.1); BASOPHILS % (AUTO) 0.8 % (0.2-1.0); EOSINOPHILS # (AUTO) 0.2 x10^3/uL (0.0-0.2); EOSINOPHILS % (AUTO) 2.7 % (0.9-2.9); HEMATOCRIT 37.7 % (42.0-54.0); HEMOGLOBIN 12.7 g/dL (13.5-18.0); LYMPHOCYTES # (AUTO) 2.5 X10^3/uL (1.3-2.9); LYMPHOCYTES % (AUTO) 30.7 % (21.0-51.0); MEAN CORPUSCULAR HEMOGLOBIN 29.8 pg (27.0-34.0); MEAN CORPUSCULAR HGB CONC 33.8 g/dL (33.0-35.0); MEAN CORPUSCULAR VOLUME 88.2 fL (80.0-100.0); MEAN PLATELET VOLUME 8.2 fL (7.4-11.0); MONOCYTES # (AUTO) 0.7 x10^3/uL (0.3-0.8); MONOCYTES % (AUTO) 8.1 % (0.0-13.0); NEUTROPHILS # (AUTO) 4.7 x10^3/uL (2.2-4.8); NEUTROPHILS % (AUTO) 57.7 % (42.0-75.0); RED BLOOD COUNT 4.28 X10^6/uL (4.7-6.0); RED CELL DISTRIBUTION WIDTH 16.1 % (11.6-16.5); WHITE BLOOD COUNT 8.1 X10^3/uL (3.6-10.0)
[2022-05-10 05:29] LABS: ALANINE AMINOTRANSFERASE 17 Units/L (12-78); ALBUMIN 3.2 g/dL (3.4-5.0); ALKALINE PHOSPHATASE 40 Units/L (46-116); ASPARTATE AMINO TRANSFERASE 16 Units/L (15-37); BLOOD UREA NITROGEN 18 mg/dL (7-18); CALCIUM 7.9 mg/dL (8.5-10.1); CARBON DIOXIDE 33.2 mmol/L (21-32); CHLORIDE 103 mmol/L (98-107); COR CA(FOR HYPOALB) 8.5 mg/dL (8.5-10.1); COR NA(FOR HYPERGLY) 141 mmol/L (136-145); CREATININE 1.28 mg/dL (0.70-1.30); SODIUM 140 mmol/L (136-145); TOTAL PROTEIN 6.1 g/dL (6.4-8.2); eGFR NON BLACK RACES 57 (>60)
[2022-05-10] MEDS ORDERED: MAGNESIUM SULFATE 1 GRAM/100 mL PREMIX 1 G/100 ML BAG IV PRN (05:48)
[2022-05-10] MEDS ORDERED: K-RIDER 10 MEQ/NS 100 ML 10 MEQ/100 ML BAG IV PRN (05:48)
[2022-05-10] MEDS ORDERED: POTASSIUM CHLORIDE LIQ 20 MEQ UDC PO PRN (05:48)
[2022-05-10] MEDS ORDERED: K-DUR TAB 20 MEQ PO PRN (05:48)
[2022-05-10] MEDS ORDERED: KLOR-CON PO PRN (05:48)
[2022-05-10] MEDS ORDERED: MICRO K EXTEN CAP 10 MEQ PO PRN (05:48)
[2022-05-10] MEDS ORDERED: POTASSIUM CHL 60 MEQ/NS 0.45% 500 ML IV PRN (05:48)
[2022-05-10] MEDS ORDERED: POTASSIUM CHL 40 MEQ/NS 0.45% 500 ML IV PRN (05:48)
--- NOTE | 2022-05-10 07:16 | RAD ---
HISTORYCHFSTUDYPortable AP [id number] is no significant change in appearance of heart or lungs. Cardiomegaly with vascular congestion and probable pulmonary edema, findings accentuated by diaphragm elevation and pulmonary hypo inflation.IMPRESSIONNo change.Electronically signed by: RONY WITT (May 10, 2022 07:15:09)
[2022-05-10] MEDS: PROVENTIL NEB TX 0.083% 2.5MG/ 3ML IN SCH (08:01)
[2022-05-10] MEDS: FLOMAX PO SCH (08:24)
[2022-05-10] MEDS: ASPIRIN 81 MG CHEWTAB PO SCH (08:24)
[2022-05-10] MEDS: LANTUS SC SCH (08:25)
[2022-05-10] MEDS: PLAVIX PO SCH (08:26)
[2022-05-10] MEDS: NEURONTIN CAP 100 MG PO SCH (08:26)
[2022-05-10] MEDS: ROBITUSSIN DM PO SCH (08:27)
[2022-05-10] MEDS: ROCEPHIN VIAL 1 GRAM 1 G in NS 100 ML IV 100 ML IV SCH (08:28)
[2022-05-10] MEDS: ZESTRIL TAB 5 MG PO SCH (08:28)
[2022-05-10] MEDS: SINGULAIR TAB 10 MG PO SCH (08:28)
[2022-05-10] MEDS ORDERED: LASIX PO SCH (09:00)
[2022-05-10 11:04] VITALS: BP 166/73
== END 2022-05-10 11:17 | disposition home or self-care (01) ==
LOC: ER 09:35 → ICU 09:35
PROVIDERS: ADMIT Internal Medicine; ATTEND Internal Medicine
DX: E11.65 Type 2 diabetes mellitus with hyperglycemia; R42 Dizziness and giddiness; I16.0 Hypertensive urgency; K21.9 Gastro-esophageal reflux disease without esophagitis; I25.10 Atherosclerotic heart disease of native coronary artery without angina pectoris; Z20.822 Contact with and (suspected) exposure to COVID-19; I67.4 Hypertensive encephalopathy; I63.19 Cerebral infarction due to embolism of other precerebral artery; J44.9 Chronic obstructive pulmonary disease, unspecified; N40.0 Benign prostatic hyperplasia without lower urinary tract symptoms; J44.0 Chronic obstructive pulmonary disease with (acute) lower respiratory infection; R41.82 Altered mental status, unspecified; R19.7 Diarrhea, unspecified

== ENCOUNTER 2022-08-16 13:11 | Inpatient (IN) ==
[2022-08-16 13:21] VITALS: BMI 33.7
--- NOTE | 2022-08-16 14:23 | DR.GENAD ---
HPI Time Seen Time Seen by Provider: 08/16/22 14:22 PCP Primary Care Physician: SHELBY Complaint/Symptoms Chief Complaint:: PT STATES HE HAS HAD VERTIGO FOR YEARS NOW, BUT LAST WEEK I FELL WHEN I GOT DIZZY AND HURT MY LEFT HIP. Self Treatment fo Chief Complaint: NONE Source History Provided: Patient Mode of Arrival Mode of Arrival: Wheelchair Timing Onset of Chief Complaint: 08/11/22 PMH PMH Past Medical History: Yes Past Medical History: Arthritis, COPD, Diabetes, GERD and Hypertension Past Surgical History: Yes Surgical History: CABG/Valve Surgery and Tonsillectomy Family History History of Family Medical Conditions: Yes Family Medical History: Diabetes Mellitus and [place] Social History Does any household member use tobacco: No Alcohol Use: None Do you use any recreational Drugs:: No Lives With: Spouse Lives Where: Home Infectious screening In the last 2 months have you had wt loss of >10#?: NO Have you had fever, night sweats or hemotysis?: No Have you traveled outside the country in the last 6 months?: No Isolation: Standard PE Vital Signs Vitals: Temperature 97.6 F Pulse Rate 67 Respiratory Rate 20 Blood Pressure [Right Arm] 168/79 Blood Pressure 134/61 O2 Sat by Pulse Oximetry 98 ROR Labs Reviewed Laboratory Results Reviewed?: Yes Result Diagrams: 08/16/22 15:25 08/16/22 15:25 Laboratory: WBC 8.7 X10^3/uL (3.6-10.0) 08/16/22 15:25 RBC 4.07 X10^6/uL (4.7-6.0) L 08/16/22 15:25 Hgb 12.1 g/dL (13.5-18.0) L 08/16/22 15:25 Hct 34.6 % (42.0-54.0) L 08/16/22 15:25 MCV 85.0 fL (80.0-100.0) 08/16/22 15:25 MCH 29.7 pg (27.0-34.0) 08/16/22 15:25 MCHC 35.0 g/dL (33.0-35.0) 08/16/22 15:25 RDW 14.9 % (11.6-16.5) 08/16/22 15:25 Plt Count 147 X10^3/uL (150.0-450.0) L 08/16/22 15:25 MPV 7.9 fL (7.4-11.0) 08/16/22 15:25 Neut % (Auto) 50.1 % (42.0-75.0) 08/16/22 15:25 Lymph % (Auto) 38.8 % (21.0-51.0) 08/16/22 15:25 Rowan % (Auto) 7.7 % (0.0-13.0) 08/16/22 15:25 Eos % (Auto) 2.5 % (0.9-2.9) 08/16/22 15:25 Baso % (Auto) 0.9 % (0.2-1.0) 08/16/22 15:25 Neut # (Auto) 4.3 x10^3/uL (2.2-4.8) 08/16/22 15:25 Lymph # (Auto) 3.4 X10^3/uL (1.3-2.9) H 08/16/22 15:25 Rowan # (Auto) 0.7 x10^3/uL (0.3-0.8) 08/16/22 15:25 Eos # (Auto) 0.2 x10^3/uL (0.0-0.2) 08/16/22 15:25 Baso # (Auto) 0.1 X10^3/uL (0.0-0.1) 08/16/22 15:25 Absolute Nucleated RBC 0.1 /100WBC 08/16/22 15:25 Sodium 134 mmol/L (136-145) L 08/16/22 15:25 Corrected Sodium 136 mmol/L (136-145) 08/16/22 15:25 Potassium 4.2 mmol/L (3.5-5.1) 08/16/22 15:25 Chloride 96 mmol/L (98-107) L 08/16/22 15:25 Carbon Dioxide 33.6 mmol/L (21-32) H 08/16/22 15:25 BUN 60 mg/dL (7-18) H 08/16/22 15:25 Creatinine 2.05 mg/dL (0.70-1.30) H 08/16/22 15:25 Est GFR (MDRD) Af Amer 40 (>60) L 08/16/22 15:25 Est GFR (MDRD) Non-Af 33 (>60) L 08/16/22 15:25 Glucose 186 mg/dL (65-99) H 08/16/22 15:25 Calcium 8.6 mg/dL (8.5-10.1) 08/16/22 15:25 Corrected Calcium TNP 08/16/22 15:25 Total Bilirubin 0.50 mg/dL (0.2-1.0) 08/16/22 15:25 AST 17 Units/L (15-37) 08/16/22 15:25 ALT 30 Units/L (12-78) 08/16/22 15:25 Alkaline Phosphatase 45 Units/L (46-116) L 08/16/22 15:25 Creatine Kinase 63 Units/L (39-308) 08/16/22 15:25 Troponin I High Sens 13.9 ng/L (4.0-60.0) 08/16/22 15:25 B-Natriuretic Peptide 57.4 pg/mL (0-79) 08/16/22 15:25 Total Protein 6.9 g/dL (6.4-8.2) 08/16/22 15:25 Albumin 4.0 g/dL (3.4-5.0) 08/16/22 15:25 Globulin 2.9 g/dL (2.5-4.5) 08/16/22 15:25 Albumin/Globulin Ratio 1.4 Ratio (1.1-2.1) 08/16/22 15:25 Specimen Type Clean catch urine 08/16/22: Urine Color Yellow (YELLOW) 08/16/22: Urine Appearance Clear (CLEAR) 08/16/22: Urine pH 6.5 (5.0 - 8.0) 08/16/22: Ur Specific [place] 1.010 (1.000-1.030) 08/16/22: Urine Protein 2+ (NEGATIVE) 08/16/22 17: Urine Glucose (UA) 3+ (NEGATIVE) 08/16/22 17: Urine Ketones Negative (NEGATIVE) 08/16/22: Urine Blood Negative (NEGATIVE) 08/16/22: Urine Nitrite Negative (NEGATIVE) 08/16/22 17:33 Urine Bilirubin Negative (NEGATIVE) 08/16/22 17:33 Urine Urobilinogen Normal (NORMAL) 08/16/22 17:33 Ur Leukocyte Esterase Negative (NEGATIVE) 08/16/22 17:33 Urine RBC 0-2 /HPF (0-3) 08/16/22 17:33 Urine WBC None seen /HPF (0-5) 08/16/22 17:33 Ur Squamous Epith Cells Rare /HPF (NEGATIVE) 08/16/22 17:33 Urine Bacteria Trace /HPF (NEGATIVE) 08/16/22 17:33 Ur Culture Indicated? No/not indicated 08/16/22 17:33 Opioid Opioid Risk Tool Age (Ghulam box if 16-45): No History of Preadolescent Sexual Abuse: No Total: 0 Total Score Risk Category: Low Risk Copyright: Josue TREJO predicting aberrant behaviors Discharge Plan Discharge Plan Patient Disposition: 01 HOME, SELF-CARE Condition: Stable Prescriptions: No Action pravastatin [Pravachol] 80 MG tablet 0.5 tab PO HS tamsulosin [Flomax] 0.4 mg Capsule 0.5 tab PO HS insulin glargine [Lantus Solostar U-100 Insulin] 100 UNIT/ML insulin pen 30 units SUBCUT BID Label Comments: furosemide 40 mg tablet 1 tab PO BID clopidogrel 75 mg tablet 1 tab PO QDAY aspirin 81 mg Tablet,Chewable 81 mg PO QDAY insulin aspart U-100 [Novolog Flexpen U-100 Insulin] 100 unit/mL (3 mL) Insulin Pen 10 unit SUBCUT TID gabapentin 100 mg capsule 1 cap PO QDAY lisinopril 5 mg tablet 5 mg PO BID PRN Rx Instructions: TAKE ONE TABLET AT BEDTIME. CHECK BLOOD PRESSURE EVERY MORNING. IF BLOOD PRESSURE IS GREATER THAN 150/90, TAKE AN ADDITIONAL TABLET IN THE MORNING. Health Concerns: Post Hospitalization: new medications and changes needed to prevent readmission or further decline. Pt educated and given instructions on all concerns. Plan of Treatment: Continue with present treatment and follow up plan. Pt is to keep follow up appointment as instructed and take medications as ordered. Orders to Discharge Patient Discharge Orders: Transfer (Routine); Ordered 08/16/22 Ordered By: DAPHNEY BARAHONA Follow ups/Referrals Follow ups/Referrals: Costa Randhawa [Primary Care Provider] - 3 days Instructions Stand Alone Forms: Precautions for COVID19, [facility], Patient Portal, Social Distancing
[2022-08-16 15:38] LABS: BASOPHILS # (AUTO) 0.1 X10^3/uL (0.0-0.1); BASOPHILS % (AUTO) 0.9 % (0.2-1.0); EOSINOPHILS # (AUTO) 0.2 x10^3/uL (0.0-0.2); EOSINOPHILS % (AUTO) 2.5 % (0.9-2.9); HEMATOCRIT 34.6 % (42.0-54.0); HEMOGLOBIN 12.1 g/dL (13.5-18.0); LYMPHOCYTES # (AUTO) 3.4 X10^3/uL (1.3-2.9); LYMPHOCYTES % (AUTO) 38.8 % (21.0-51.0); MEAN CORPUSCULAR HEMOGLOBIN 29.7 pg (27.0-34.0); MEAN PLATELET VOLUME 7.9 fL (7.4-11.0); MONOCYTES # (AUTO) 0.7 x10^3/uL (0.3-0.8); MONOCYTES % (AUTO) 7.7 % (0.0-13.0); NEUTROPHILS # (AUTO) 4.3 x10^3/uL (2.2-4.8); NEUTROPHILS % (AUTO) 50.1 % (42.0-75.0); RED BLOOD COUNT 4.07 X10^6/uL (4.7-6.0); RED CELL DISTRIBUTION WIDTH 14.9 % (11.6-16.5); WHITE BLOOD COUNT 8.7 X10^3/uL (3.6-10.0)
[2022-08-16 15:51] LABS: ALANINE AMINOTRANSFERASE 30 Units/L (12-78); ALKALINE PHOSPHATASE 45 Units/L (46-116); ASPARTATE AMINO TRANSFERASE 17 Units/L (15-37); BLOOD UREA NITROGEN 60 mg/dL (7-18); CALCIUM 8.6 mg/dL (8.5-10.1); CARBON DIOXIDE 33.6 mmol/L (21-32); CHLORIDE 96 mmol/L (98-107); COR NA(FOR HYPERGLY) 136 mmol/L (136-145); CREATINE KINASE 63 Units/L (39-308); CREATININE 2.05 mg/dL (0.70-1.30); SODIUM 134 mmol/L (136-145); TOTAL PROTEIN 6.9 g/dL (6.4-8.2); eGFR NON BLACK RACES 33 (>60)
--- NOTE | 2022-08-16 16:43 | CT ---
HISTORYPT STATES HE HAS HAD VERTIGO FOR YEARS NOW, BUT LAST WEEK I FELL WHEN I GOT DIZZY AND HURT MY LEFT HIP.STUDYBRAIN W/O CONCOMPARISONMRI brain from May 06, 2022 and CTA brain from May 06, 2022TECHNIQUEAxial non-contrast images of the head were obtained with coronal and sagittal reformats provided.Radiation dose: 990.52 mGy-cm total DLPFINDINGSNo abnormal areas of acute attenuation in the brain parenchyma.Baeza-white differentiation remains intact.No intracranial, extra-axial, fluid collection.No hemorrhage.Periventricular chronic microvascular disease.No mass, mass effect or midline shift.Age related brain parenchymal global atrophy.No ventriculomegaly.No acute fracture.Sinuses are well aerated.Mastoid air cells are well aerated.Globes and intra-orbital contents are unremarkable.IMPRESSIONNo acute intracranial abnormality identified.Electronically signed by: Austin Archuleta (Aug 16, 2022 16:41:23)
[2022-08-16] MEDS ORDERED: NS 1,000 ML IV 1,000 ML IV ONE (17:00)
[2022-08-16] MEDS ORDERED: NS 1,000 ML IV 1,000 ML ONE (17:29)
--- NOTE | 2022-08-16 17:36 | RAD ---
CHEST, 1 VIEWHISTORY:VertigoStudy: Single view of the chest.Comparison:NoneFindings:Cardiomegaly and pulmonary vascular congestion. No focal consolidations, pleural effusions or pneumothorax. Osseous structures demonstrate no acute abnormality.IMPRESSION:1.Cardiomegaly and pulmonary vascular congestion.Electronically signed by: RADHA PÉREZ (Aug 16, 2022 17:34:30)
[2022-08-16 17:43] LABS: BILIRUBIN,URINE NEGATIVE (NEGATIVE); BLOOD/HEMOGLOBIN,URINE NEGATIVE (NEGATIVE); GLUCOSE, URINE 3+ (NEGATIVE); KETONES,URINE NEGATIVE (NEGATIVE); LEUKOCYTE ESTERASE ,URINE NEGATIVE (NEGATIVE); NITRITES,URINE NEGATIVE (NEGATIVE); PH,URINE 6.5 (5.0 - 8.0); PROTEIN,URINE 2+ (NEGATIVE); UROBILINOGEN,URINE NORMAL (NORMAL)
[2022-08-16 17:44] LABS: APPEARANCE,URINE CLEAR (CLEAR); COLOR,URINE YELLOW (YELLOW)
[2022-08-16 17:46] LABS: BACTERIA,URINE TRACE /HPF (NEGATIVE); RBC,URINE 0-2 /HPF (0-3); SQUAMOUS EPITHELIAL CELL,UR RARE /HPF (NEGATIVE)
[2022-08-16 18:49] LABS: BILIRUBIN,URINE NEGATIVE (NEGATIVE); BLOOD/HEMOGLOBIN,URINE NEGATIVE (NEGATIVE); GLUCOSE, URINE 2+ (NEGATIVE); KETONES,URINE NEGATIVE (NEGATIVE); LEUKOCYTE ESTERASE ,URINE NEGATIVE (NEGATIVE); NITRITES,URINE NEGATIVE (NEGATIVE); PH,URINE 6.5 (5.0 - 8.0); PROTEIN,URINE NEGATIVE (NEGATIVE); UROBILINOGEN,URINE NORMAL (NORMAL)
[2022-08-16 18:56] LABS: APPEARANCE,URINE CLEAR (CLEAR); COLOR,URINE PALE YELLOW (YELLOW)
[2022-08-16] MEDS: NS 1,000 ML IV 1,000 ML IV SCH (19:56)
[2022-08-16] MEDS ORDERED: PROVENTIL NEB TX 0.083% 2.5MG/ 3ML ONE (20:42)
[2022-08-16] MEDS: PROVENTIL NEB TX 0.083% 2.5MG/ 3ML NEB SCH (21:00)
--- NOTE | 2022-08-16 21:19 | RAD ---
HISTORYPT STATES HE HAS HAD VERTIGO FOR YEARS NOW, BUT LAST WEEK I FELL WHEN I GOT DIZZY AND HURT MY LEFT HIP. Relevant Clinical InformationSTUDYHIP, LEFTCOMPARISONNoneFINDINGSA single frontal view of the pelvis demonstrates the pelvic ring to be intact. No evidence for acute cortical disruption or dislocation of the hip can be observed. Frog leg views of the hip fails to demonstrate evidence for fracture or significant joint abnormality.IMPRESSIONNegative examElectronically signed by: ARLET WHITNEY (Aug 16, 2022 21:17:46)
[2022-08-17] MEDS: NS 1,000 ML IV 1,000 ML IV SCH ×3 (03:00→21:26)
[2022-08-17 03:37] LABS: BASOPHILS # (AUTO) 0.1 X10^3/uL (0.0-0.1); BASOPHILS % (AUTO) 1.1 % (0.2-1.0); EOSINOPHILS # (AUTO) 0.3 x10^3/uL (0.0-0.2); EOSINOPHILS % (AUTO) 3.9 % (0.9-2.9); HEMATOCRIT 30.4 % (42.0-54.0); HEMOGLOBIN 10.9 g/dL (13.5-18.0); LYMPHOCYTES # (AUTO) 3.2 X10^3/uL (1.3-2.9); LYMPHOCYTES % (AUTO) 44.4 % (21.0-51.0); MEAN CORPUSCULAR HEMOGLOBIN 30.5 pg (27.0-34.0); MEAN CORPUSCULAR VOLUME 84.7 fL (80.0-100.0); MEAN PLATELET VOLUME 7.8 fL (7.4-11.0); MONOCYTES # (AUTO) 0.6 x10^3/uL (0.3-0.8); MONOCYTES % (AUTO) 8.5 % (0.0-13.0); NEUTROPHILS % (AUTO) 42.1 % (42.0-75.0); RED BLOOD COUNT 3.58 X10^6/uL (4.7-6.0); RED CELL DISTRIBUTION WIDTH 14.8 % (11.6-16.5); WHITE BLOOD COUNT 7.1 X10^3/uL (3.6-10.0)
[2022-08-17 03:57] LABS: BLOOD UREA NITROGEN 49 mg/dL (7-18); CALCIUM 8.2 mg/dL (8.5-10.1); CARBON DIOXIDE 30.4 mmol/L (21-32); CHLORIDE 102 mmol/L (98-107); COR NA(FOR HYPERGLY) 143 mmol/L (136-145); CREATININE 1.65 mg/dL (0.70-1.30); SODIUM 141 mmol/L (136-145); eGFR NON BLACK RACES 42 (>60)
[2022-08-17] MEDS: PROVENTIL NEB TX 0.083% 2.5MG/ 3ML NEB SCH ×2 (05:00→21:10)
--- NOTE | 2022-08-17 07:38 | RAD ---
HISTORYSOBSTUDYCHEST, 1 [id number]/24/2022.TECHNIQUEAP view of the chestFINDINGSCardiac valve noted. Cardiac silhouette is enlarged with silhouetting of the left heart border. Mediastinal contours appear normal. Similar appearing bibasilar interstitial opacities. Cannot exclude a small left pleural effusion. No pneumothorax. Soft tissue attenuation limits evaluation..IMPRESSIONBibasilar interstitial opacities may represent pneumonia or chronic fibrosis.Cannot exclude small left pleural effusion.Cardiomegaly.Electronically signed by: Dexter Michele (Aug 17, 2022 07:36:31)
[2022-08-17] MEDS: LEVAQUIN PREMIX IV 500 MG 500 MG/100 ML BAG IV SCH (09:36)
[2022-08-17] MEDS: MAALOX or MYLANTA PO PRN ×2 (11:12→20:44)
[2022-08-17 11:40] LABS: ALANINE AMINOTRANSFERASE 26 Units/L (12-78); ALBUMIN 3.4 g/dL (3.4-5.0); ALKALINE PHOSPHATASE 38 Units/L (46-116); ASPARTATE AMINO TRANSFERASE 17 Units/L (15-37); TOTAL PROTEIN 6.1 g/dL (6.4-8.2)
[2022-08-17] MEDS: PEPCID 20 MG VIAL 20 MG in NS 50 ML IV 50 ML IV SCH ×2 (12:28→20:43)
[2022-08-17] MEDS: PROTONIX INJ 40 MG VIAL IVP SCH ×2 (12:31→20:43)
--- NOTE | 2022-08-17 13:12 | DR.H&P ---
H&P - History & Physical for Day of: H&P Date: 08/16/22 - Chief Complaint Chief Complaint: DIZZINESS AND LEFT HIP PAIN - History of Present Illness History of Present Illness: IS A 87 YEAR OLD PATIENT OF OURS. HE PRESENTED TO THE ER WITH COMPLAINTS OF SEVERE DIZZINESS AND LEFT HIP PAIN. PATIENT REPORTS THAT HE FELL ABOUT A WEEK AGO DUE TO DIZZINESS AND HAS HAD LEFT HIP PAIN SINCE FALLING. HE DOES ADMIT TO HAVING A HISTORY OF VERTIGO. HIS OTHER PMH INCLUDES ARTHRITIS, COPD, DM II, GERD, HTN, CABG, AND TONSILLECTOMY. ON ARRIVAL TO THE ER, VITALS WERE: 97.6-67-20-98%-134/61. LABS WERE OBTAINED. WBC 8.7, RBC 4.07, HGB 12.1, HCT 34.6, PLT COUNT 147, SODIUM 134, POTASSIUM 4.2, CHLORIDE 96, CARBON DIOXIDE 33.6, BUN 60, CREATININE 2.05, GLUCOSE 186, CALCIUM 8.6, AST 17, ALT 30, ALK PHOS 45, CREATINE KINASE 63, TOTAL PROTEIN 6.9, ALBUMIN 4.0, TROPONIN 13.9, BNP 57.4. A URINALYSIS WAS OBTAINED AND WAS UNREMARKABLE. BRAIN CT WITHOUT CONTRAST REVEALED: No acute intracranial abnormality identified. CHEST XRAY OBTAINED AND REVEALED: 1.Cardiomegaly and pulmonary vascular congestion. LEFT HIP XRAY OBTAINED AND REVEALED: A single frontal view of the pelvis demonstrates the pelvic ring to be intact. No evidence for acute cortical disruption or dislocation of the hip can be observed. Frog leg views of the hip fails to demonstrate evidence for fracture or significant joint abnormality. EKG REVEALED: WIDE QRS RHYTHM WITH HR 64. IN THE ER, HE WAS GIVEN A NORMAL SALINE BOLUS. SHE WAS ADMITTED TO THE HOSPTIAL FOR FURTHER EVALUATION AND TREATMENT OF ACUTE RENAL FAILURE, SEVERE DEHYDRATION, AND DIZZINESS. HE WAS STARTED ON NORMAL SALINE AT 125 ML/HR, LEVAQUIN 500MG IV DAILY, FAMOTIDINE 20MG IV Q12H, PROTONIX 40MG IV BID, ALBUTEROL NEB TX TID, OTBS ACHS, HUMULIN R SLIDING SCALE, AND HIS HOME MEDICATIONS WERE RESUMED. OTHERWISE, WE PLAN TO FOLLOW-UP WITH AM LABS AND CONTINUE TO MONITOR. TIME SPENT ON CLINICAL ASSESSMENT, REVIWING LABS AND IMAGING, DECISION MAKING, AND DOCUMENTATION GREATER THAN 75 MINUTES. - Past Medical History Past Medical History: Hypertension, Diabetes, COPD, GERD, Arthritis - Past Surgical History Surgical History: Ortho Surgery, Tonsillectomy - Family History Family Medical History: [place], Heart Failure - Social History Does patient currently use any type of tobacco product: No Have you used tobacco products in the last 12 months: No Type of Tobacco Use: None Does any household member use tobacco: No Alcohol Use: None Drug Use: None - Medications Home Medications: penicillin G Allergy (Verified 05/08/22 02:45) SULFA DRUGS Allergy (Uncoded 05/29/15 21:08) CONTINUE taking the following medications gabapentin 100 mg capsule 1 cap PO QDAY 08/16/22 [History] lisinopril 5 mg tablet 5 mg PO BID PRN 08/16/22 [History] - Review of Systems Constitutional: Weakness Eyes: No Symptoms Reported ENT: No Symptoms Reported Respiratory: No Symptoms Reported Cardiovascular: Light Headedness Gastrointestinal: No Symptoms Reported Genitourinary: No Symptoms Reported Musculoskeletal: See HPI, Other (LEFT HIP PAIN ) Skin: No Symptoms Reported Neurological: Weakness - Physical Exam Vital Signs: Temperature 97.4 F Pulse Rate [Brachial] 56 Pulse Rate 74 Respiratory Rate 20 Blood Pressure [Left Arm] 152/70 Blood Pressure [Right Arm] 134/72 Blood Pressure 134/61 O2 Sat by Pulse Oximetry 97 Oriented: Normal Eyes: Normal Ear: Normal Nose: Normal Throat: Normal Respiratory: Diminished Throughout Cardiovascular: Normal : Normal Auscultation: Bowel Sounds: Normal Palpation: Normal Tenderness: Normal Skin: Normal Musculoskeletal: Left, Hip, Tender Psychiatric: Normal Mood Description: Calm Affect: Normal Speech Pattern: Clear - Assessment/Plan (1) Acute renal failure Qualifiers: Acute renal failure type: unspecified Qualified Code(s): N17.9 - Acute kidney failure, unspecified Status: Acute Plan: ADMIT, NORMAL SALINE AT 125 ML/HR, LEVAQUIN 500MG IV DAILY, FAMOTIDINE 20MG IV Q12H, PROTONIX 40MG IV BID, ALBUTEROL NEB TX TID, OTBS ACHS, HUMULIN R SLIDING SCALE, AND HIS HOME MEDICATIONS WERE RESUMED. (2) Dehydration Status: Acute (3) Dizziness Status: Acute - Allergies Allergies/Adverse Reactions: Allergies Allergy/AdvReac Type Severity Reaction Status Date / Time penicillin G Allergy Verified 05/08/22 02:45 SULFA DRUGS Allergy Uncoded 05/29/15 21:08
[2022-08-17] MEDS: NovoLIN R (or HumuLIN R) SUBCUT PRN ×3 (13:49→20:45)
[2022-08-17] MEDS ORDERED: SNACK - Diabetic Appropriate PO SCH (20:00)
[2022-08-18] MEDS: NS 1,000 ML IV 1,000 ML IV SCH (05:11)
[2022-08-18] MEDS: PROVENTIL NEB TX 0.083% 2.5MG/ 3ML NEB SCH (05:46)
[2022-08-18 06:20] LABS: BASOPHILS # (AUTO) 0.1 X10^3/uL (0.0-0.1); BASOPHILS % (AUTO) 0.9 % (0.2-1.0); EOSINOPHILS # (AUTO) 0.2 x10^3/uL (0.0-0.2); EOSINOPHILS % (AUTO) 3.6 % (0.9-2.9); HEMATOCRIT 30.3 % (42.0-54.0); HEMOGLOBIN 10.6 g/dL (13.5-18.0); LYMPHOCYTES # (AUTO) 3.2 X10^3/uL (1.3-2.9); LYMPHOCYTES % (AUTO) 46.5 % (21.0-51.0); MEAN CORPUSCULAR HEMOGLOBIN 30.1 pg (27.0-34.0); MEAN CORPUSCULAR HGB CONC 35.1 g/dL (33.0-35.0); MEAN CORPUSCULAR VOLUME 85.7 fL (80.0-100.0); MEAN PLATELET VOLUME 7.9 fL (7.4-11.0); MONOCYTES # (AUTO) 0.5 x10^3/uL (0.3-0.8); MONOCYTES % (AUTO) 7.5 % (0.0-13.0); NEUTROPHILS # (AUTO) 2.9 x10^3/uL (2.2-4.8); NEUTROPHILS % (AUTO) 41.5 % (42.0-75.0); RED BLOOD COUNT 3.53 X10^6/uL (4.7-6.0); RED CELL DISTRIBUTION WIDTH 14.6 % (11.6-16.5); WHITE BLOOD COUNT 6.9 X10^3/uL (3.6-10.0)
[2022-08-18 07:02] LABS: ALANINE AMINOTRANSFERASE 28 Units/L (12-78); ALBUMIN 3.2 g/dL (3.4-5.0); ALKALINE PHOSPHATASE 36 Units/L (46-116); ASPARTATE AMINO TRANSFERASE 20 Units/L (15-37); BLOOD UREA NITROGEN 27 mg/dL (7-18); CALCIUM 8.2 mg/dL (8.5-10.1); CHLORIDE 107 mmol/L (98-107); COR CA(FOR HYPOALB) 8.8 mg/dL (8.5-10.1); COR NA(FOR HYPERGLY) 141 mmol/L (136-145); CREATININE 1.41 mg/dL (0.70-1.30); SODIUM 140 mmol/L (136-145); eGFR NON BLACK RACES 51 (>60)
[2022-08-18 08:13] VITALS: BP 137/63
[2022-08-18] MEDS: PROTONIX INJ 40 MG VIAL IVP SCH (08:23)
[2022-08-18] MEDS: PEPCID 20 MG VIAL 20 MG in NS 50 ML IV 50 ML IV SCH (08:23)
[2022-08-18] MEDS ORDERED: PATIENT'S HOME MEDICATION (Insulin Aspart U-100 [Novolog Flexpen U-100 Insulin] 100 unit/m SUBCUT SCH (08:45)
[2022-08-18] MEDS ORDERED: ASPIRIN 81 MG CHEWTAB PO SCH (09:00)
[2022-08-18] MEDS ORDERED: LANTUS SC SCH (09:00)
[2022-08-18] MEDS ORDERED: NEURONTIN CAP 100 MG PO SCH (09:00)
[2022-08-18] MEDS ORDERED: LOVENOX INJ 40 MG SYR SC SCH (09:00)
[2022-08-18] MEDS ORDERED: PLAVIX PO SCH (09:00)
[2022-08-18] MEDS: LEVAQUIN PREMIX IV 500 MG 500 MG/100 ML BAG IV SCH (09:18)
[2022-08-18] MEDS ORDERED: FLOMAX PO SCH (21:00)
[2022-08-18] MEDS ORDERED: PRAVACHOL PO SCH (21:00)
[2022-08-18] MEDS ORDERED: ZESTRIL TAB 5 MG PO SCH (21:00)
== END 2022-08-18 11:55 | disposition home or self-care (01) | DRG 684 ==
LOC: MED/SURG 13:11 → ER 13:11 → OBSVTOIN 19:20 → MED/SURG 19:24
PROVIDERS: ADMIT Internal Medicine; ATTEND Internal Medicine
DX: J44.9 Chronic obstructive pulmonary disease, unspecified; R42 Dizziness and giddiness; R06.02 Shortness of breath; E11.65 Type 2 diabetes mellitus with hyperglycemia; R94.31 Abnormal electrocardiogram [ECG] [EKG]; E86.0 Dehydration; M25.552 Pain in left hip; N17.8 Other acute kidney failure; I10 Essential (primary) hypertension; K21.9 Gastro-esophageal reflux disease without esophagitis